=== PATIENT | male | born 1960 | race Caucasian/White ===

== ENCOUNTER 2020-10-07 11:13 | Inpatient (IN) | payer OTHER, SELFPAY ==
[2020-10-07] VITALS (16 sets, daily range): BP systolic 60–95; BP diastolic 34–61; PULSE 99–137; RESP 14–20; TEMP 34.3–37.4; O2SAT 89–97; BMI 22.1; BMI 20.7
--- NOTE | 2020-10-07 | CT_ITS ---
EXAMINATION: CT ABDOMEN AND PELVIS WITH CONTRAST CLINICAL INFORMATION: Question colitis. COMPARISON: CTA chest 11/05/2019. TECHNIQUE: Multidetector volumetric images were obtained from the superior aspect of the liver through the pubic symphysis following administration 85 mL of Omnipaque 350 intravenous contrast. Sagittal and coronal reformatted images were obtained on the technologist's workstation. Oral Contrast: No. This CT examination was performed using dose optimization techniques as appropriate, variously including the following: *Automated exposure control. *Adjustment of mA and/or kV according to patient size (this includes techniques or standardized protocols for targeted exams where dose is matched to indication/reason for exam; i.e. extremities or head). *Use of iterative reconstruction technique. DLP: 602 mGy-cm FINDINGS: LUNG BASES: Small bilateral pleural effusions are seen. At the left lung base, there is marked partially visualized probable bronchiectasis seen with surrounding soft tissue density. At the time of the prior CT chest, a larger effusion was present on the left. A few small scattered peripheral ground-glass infiltrates are present (see kim images). Marked coronary calcification is seen. Although not carried out for evaluation of pulmonary emboli, I believe pulmonary emboli may be present in the right lower lobe (see kim images). LIVER, GALLBLADDER, AND BILIARY TREE: I suspect the liver demonstrates hepatic steatosis. No focal liver mass or bile duct dilatation is seen. A tiny amount of ascites is present predominantly around the liver with a small amount in the cul-de-sac. The gallbladder is unremarkable with no evidence of definite radiopaque gallstones, gallbladder wall thickening, or obvious pericholecystic inflammatory changes. PANCREAS: Unremarkable. SPLEEN: A large splenule is present. ADRENAL GLANDS: Unremarkable. KIDNEYS AND URETERS: The kidneys are normal in size, shape, and attenuation. Some tiny cysts are seen. No hydronephrosis, hydroureter, or calculi seen. No perinephric stranding. BLADDER: Bladder is thick-walled and appears to contain air. Has this patient been catheterized recently? GASTROINTESTINAL TRACT: There is marked edematous changes involving nearly the entire colon. Inflammatory changes are seen in the perirectal region with fluid and there is retroperitoneal air present in the perineum and perirectal tissues extending into the right buttock. No free intraperitoneal air is seen. ABDOMINAL WALL: Small bilateral inguinal hernias are seen containing a small amount of fluid. LYMPH NODES: No retroperitoneal lymphadenopathy is seen. VASCULAR: Marked calcific atherosclerotic changes are present in the infrarenal aorta and iliofemoral vessels. PELVIC VISCERA: Prostate and seminal vesicles appear normal. OSSEOUS STRUCTURES: An intramedullary dea and screw is present in the right hip. CT/CT abdomen pelvis w con IMPRESSION: 1. Question of pulmonary emboli in the right lower lobe. 2. Bilateral small pleural effusions with abnormal mass-like area with associated bronchiectasis, left lower lobe. 3. Grossly abnormal edematous colon with small amount of free intraperitoneal fluid and retroperitoneal gas predominantly in the perineum and right perirectal region as described above. 4. Abnormal thick-walled bladder containing air. This could represent cystitis. The air could be from recent catheterization, if this occurred. This critical result was discussed with Dr. Rendon at 7:45 PM on the day of the exam and it was ascertained that the content and urgency of the report was understood at the time of direct communication.
--- NOTE | 2020-10-07 11:26 | ED_ITS ---
HPI - Weakness General Chief complaint: Weakness Stated complaint: FEELS ILL Time Seen by Provider: 10/07/20 11:26 Source: EMS and other (nurse) Mode of arrival: EMS Limitations: other (Brocas aphasia) History of Present Illness HPI Narrative: male brought in for weakness generalized, told his could not care for him Onset (ago): day(s) Duration: constant Location: generalized Severity: severe Related Data Home Medications Medication Instructions Recorded Confirmed albuterol sulfate [ProAir HFA] 2 puff INHALATION Q6H PRN 10/07/20 10/07/20 atorvastatin 40 mg PO DAILY 10/07/20 10/07/20 [id number]-drjnyisaw-clclbbct 1 inh INHALATION DAILY 10/07/20 10/07/20 [Trelegy Ellipta] folic acid 1 mg PO DAILY 10/07/20 10/07/20 gabapentin 300 mg PO BEDTIME PRN 10/07/20 10/07/20 thiamine HCl (vitamin B1) 100 mg PO DAILY 10/07/20 10/07/20 Allergies Allergy/AdvReac Type Severity Reaction Status Date / Time Beta-Blockers AdvReac Unknown ACTIVE Unverified 05/28/20 15:17 (Beta-Adrenergic Bloc COPD [BETA-BLOCKERS (BETA-ADRENERGIC BLOC] Review of Systems Review of Systems: Yes Unobtainable due to mental condition Neurologic: Denies Sensory deficit (Neuro) [facility] Social History Social History Alcohol intake: unknown Smoking Status: Former smoker Smoked in Last 30 Days: No Use of substances other than those prescribed or required for medical reasons: Unknown Advance Directives: Yes Advance Directives Information Provided: Yes Advance Directives on File: No (FILED IN [place]) Physical Exam Vital Signs: Vital Signs: Last Vital Signs Temp 97.6 F 10/07/20 14:56 Pulse 127 H 10/07/20 14:56 Resp 18 10/07/20 14:56 BP 86/43 L 10/07/20 14:56 Pulse Ox 95 10/07/20 14:56 Body Mass Index 20.7 Const: Other: chronically ill appearing, short of breath Nutritional A ppearance: thin Limitations: other limitations (aphasic) HENMT: Head: Yes normal to inspection Ears: external ears normal General nose exam: Normal external nose present Mouth: Normal oral and palatal mucosa present and oropharynx normal Throat: Yes posterior oropharynx normal Eyes: General: appearance normal, both eyes and all related structures Neck: Other: supple Neck: Yes normal visual inspection Chest: Chest palpation & inspection: normal inspection of the chest Resp: Other: diffuse rhonchi with slight cough Cardio: Other: tachycardia Jugular venous distension: no JVD Rate: regular rate Rhythm: regular rhythm GI: Inspection: Yes normal to inspection Palpation (GI): Soft to palpation, nontender and No hepatosplenomegaly present Auscultation: normal bowel sounds : General: Yes no CVA tenderness Back/Spine/Pelvis: Back: no CVA tenderness Skin: Other: 2 large stage 4 sacral decubedi Neuro: Other: dense right hemiparesis Sensory Exam: No Sensory deficit (Neuro) Extrem: Other: right arm contracted with lymphedema, right leg with severe lymphadema Psych: Appearance: grossly normal Course Course Course Narrative: Patient ill appearing, large WBC 23K, infiltrates on xray, started abx will admit Reevaluation(s) Reevaluation #1: Patient now with diarrhea, with such a high WBC count will sent cdiff Time: 15:59 MDM - Weakness MDM Narrative Medical decision making narrative: pneumonia were all considered. Covid negative, started treatment for pneumonia Differential Diagnosis Differential diagnosis: Likely UTI, rhabdomyolysis, sepsis and dehydration Lab Data Result diagrams: 10/07/20 11:50 10/07/20 11:50 Labs: Lab Results 10/07/20 10/07/20 10/07/20 Range/Units 11:50 11:50 11:50 WBC 23.2 H (4.8-10.8) X10*3/uL RBC 3.11 L (4.60-5.80) X10*6/uL Hgb 9.9 L (14.0-18.0) g/dl Hct 29.4 L (42-52) % MCV 94.5 (80-98) fL MCH 31.8 (27.0-33.0) pg MCHC 33.7 (31.0-36.0) g/dl RDW 15.7 (11.0-16.0) % Plt Count 93 L (160-400) X10*3/uL MPV 10.6 (9.4-12.4) fL Immature Gran % (Auto) Cancelled Neut % (Auto) Cancelled Lymph % (Auto) Cancelled [facility] % (Auto) Cancelled Eos % (Auto) Cancelled Baso % (Auto) Cancelled Lymph # (Auto) Cancelled [facility] # (Auto) Cancelled Eos # (Auto) Cancelled Baso # (Auto) Cancelled Abs Immat Gran (auto) Cancelled Absolute Neuts (auto) Cancelled Absolute Nucleated RBC 0.000 (0.0-0.012) X10*3/uL Nucleated RBC % (auto) 0.0 (0.0-0.2) /100WBC Neutrophils % (Manual) 74 H (45-73) % Band Neutrophils % 23 H (3-5) % Lymphocytes % (Manual) 1 L (20-40) % Monocytes % (Manual) 2 (2-11) % Abs Neuts (Manual) 22.5 H (2.2-7.9) X10*3/uL Lymphocytes # (Manual) 0.2 L (0.6-4.8) X10*3/uL Monocytes # (Manual) 0.5 (0.0-1.2) X10*3/uL Toxic Vacuolation PRESENT Platelet Estimate DECREASED (NORMAL) Plt Morphology Comment NORMAL RBC Morphology NOTED Cindi Cells 1+ Acanthocytes (Spur) 1+ Hold Blue Top Sodium 133 L (135-145) mmol/L Potassium 3.4 (3.3-5.1) mmol/l Chloride 101 (96-108) mmol/L Carbon Dioxide 25 (22-29) mmol/L Anion Gap 10 L (12-20) BUN 6 L (9-16) mg/dL Creatinine 0.59 (0.5-1.4) mg/dL Estim Creat Clear Calc 126.4 Estimated GFR > 60 Random Glucose 66 (60-115) mg/dL Lactic Acid (0.5-2.0) mmol/L Lactic Acid Fup @ 2Hr (0.5-2.0) mmol/L Calcium 7.0 L (8.4-10.2) mg/dL Total Bilirubin 1.3 H (0.0-1.0) mg/dL AST 20 (5-37) U/L ALT 21 (0-40) U/L Alkaline Phosphatase 108 (39-117) U/L Troponin I High Sens 6.5 (<3.5-35.0) ng/L Total Protein 5.8 L (6.5-8.0) g/dL Albumin 1.3 L (3.5-5.0) g/dL Hold Yellow Top Urine Color Urine Appearance Urine pH (5.0-8.0) Ur Specific Bradford (1.005-1.025) Urine Protein (NEG-TRACE) MG/DL Urine Glucose (UA) (NEG) MG/DL Urine Ketones (NEG) MG/DL Urine Blood (NEG) Urine Nitrite (NEG) Ur Leukocyte Esterase (NEG) Urine RBC (0) /HPF Urine WBC (0-4) /HPF Ur Squamous Epith Cells /LPF Urine Bacteria /LPF Coronavirus (PCR) (Negative) Influenza Type A (PCR) (Negative) Influenza Type B (PCR) (Negative) RSV RNA Qual (PCR) (Negative) 10/07/20 10/07/20 10/07/20 Range/Units 11:50 11:51 12:07 WBC (4.8-10.8) X10*3/uL RBC (4.60-5.80) X10*6/uL Hgb (14.0-18.0) g/dl Hct (42-52) % MCV (80-98) fL MCH (27.0-33.0) pg MCHC (31.0-36.0) g/dl RDW (11.0-16.0) % Plt Count (160-400) X10*3/uL MPV (9.4-12.4) fL Immature Gran % (Auto) Neut % (Auto) Lymph % (Auto) [facility] % (Auto) Eos % (Auto) Baso % (Auto) Lymph # (Auto) [facility] # (Auto) Eos # (Auto) Baso # (Auto) Abs Immat Gran (auto) Absolute Neuts (auto) Absolute Nucleated RBC (0.0-0.012) X10*3/uL Nucleated RBC % (auto) (0.0-0.2) /100WBC Neutrophils % (Manual) (45-73) % Band Neutrophils % (3-5) % Lymphocytes % (Manual) (20-40) % Monocytes % (Manual) (2-11) % Abs Neuts (Manual) (2.2-7.9) X10*3/uL Lymphocytes # (Manual) (0.6-4.8) X10*3/uL Monocytes # (Manual) (0.0-1.2) X10*3/uL Toxic Vacuolation Platelet Estimate (NORMAL) Plt Morphology Comment RBC Morphology Cindi Cells Acanthocytes (Spur) Hold Blue Top SEE NOTE Sodium (135-145) mmol/L Potassium (3.3-5.1) mmol/l Chloride (96-108) mmol/L Carbon Dioxide (22-29) mmol/L Anion Gap (12-20) BUN (9-16) mg/dL Creatinine (0.5-1.4) mg/dL Estim Creat Clear Calc Estimated GFR Random Glucose (60-115) mg/dL Lactic Acid 2.2 H* (0.5-2.0) mmol/L Lactic Acid Fup @ 2Hr (0.5-2.0) mmol/L Calcium (8.4-10.2) mg/dL Total Bilirubin (0.0-1.0) mg/dL AST (5-37) U/L ALT (0-40) U/L Alkaline Phosphatase (39-117) U/L Troponin I High Sens (<3.5-35.0) ng/L Total Protein (6.5-8.0) g/dL Albumin (3.5-5.0) g/dL Hold Yellow Top Urine Color Urine Appearance Urine pH (5.0-8.0) Ur Specific Bradford (1.005-1.025) Urine Protein (NEG-TRACE) MG/DL Urine Glucose (UA) (NEG) MG/DL Urine Ketones (NEG) MG/DL Urine Blood (NEG) Urine Nitrite (NEG) Ur Leukocyte Esterase (NEG) Urine RBC (0) /HPF Urine WBC (0-4) /HPF Ur Squamous Epith Cells /LPF Urine Bacteria /LPF Coronavirus (PCR) NEGATIVE (Negative) Influenza Type A (PCR) NEGATIVE (Negative) Influenza Type B (PCR) NEGATIVE (Negative) RSV RNA Qual (PCR) NEGATIVE (Negative) 10/07/20 10/07/20 10/07/20 Range/Units 12:07 12:35 14:47 WBC (4.8-10.8) X10*3/uL RBC (4.60-5.80) X10*6/uL Hgb (14.0-18.0) g/dl Hct (42-52) % MCV (80-98) fL MCH (27.0-33.0) pg MCHC (31.0-36.0) g/dl RDW (11.0-16.0) % Plt Count (160-400) X10*3/uL MPV (9.4-12.4) fL Immature Gran % (Auto) Neut % (Auto) Lymph % (Auto) [facility] % (Auto) Eos % (Auto) Baso % (Auto) Lymph # (Auto) [facility] [place] # (Auto) Eos # (Auto) Baso # (Auto) Abs Immat Gran (auto) Absolute Neuts (auto) Absolute Nucleated RBC (0.0-0.012) X10*3/uL Nucleated RBC % (auto) (0.0-0.2) /100WBC Neutrophils % (Manual) (45-73) % Band Neutrophils % (3-5) % Lymphocytes % (Manual) (20-40) % Monocytes % (Manual) (2-11) % Abs Neuts (Manual) (2.2-7.9) X10*3/uL Lymphocytes # (Manual) (0.6-4.8) X10*3/uL Monocytes # (Manual) (0.0-1.2) X10*3/uL Toxic Vacuolation Platelet Estimate (NORMAL) Plt Morphology Comment RBC Morphology Mouthcard Cells Acanthocytes (Spur) Hold Blue Top Sodium (135-145) mmol/L Potassium (3.3-5.1) mmol/l Chloride (96-108) mmol/L Carbon Dioxide (22-29) mmol/L Anion Gap (12-20) BUN (9-16) mg/dL Creatinine (0.5-1.4) mg/dL Estim Creat Clear Calc Estimated GFR Random Glucose (60-115) mg/dL Lactic Acid (0.5-2.0) mmol/L Lactic Acid Fup @ 2Hr 3.3 H* (0.5-2.0) mmol/L Calcium (8.4-10.2) mg/dL Total Bilirubin (0.0-1.0) mg/dL AST (5-37) U/L ALT (0-40) U/L Alkaline Phosphatase (39-117) U/L Troponin I High Sens (<3.5-35.0) ng/L Total Protein (6.5-8.0) g/dL Albumin (3.5-5.0) g/dL Hold Yellow Top See Note Urine Color YELLOW Urine Appearance TURBID Urine pH 7.5 (5.0-8.0) Ur Specific Bradford 1.015 (1.005-1.025) Urine Protein TRACE (NEG-TRACE) MG/DL Urine Glucose (UA) 100 H (NEG) MG/DL Urine Ketones NEG (NEG) MG/DL Urine Blood 3+ H (NEG) Urine Nitrite NEG (NEG) Ur Leukocyte Esterase 3+ H (NEG) Urine RBC 5-9 H (0) /HPF Urine WBC 50-75 H (0-4) /HPF Ur Squamous Epith Cells 3+ /LPF Urine Bacteria 4+ /LPF Coronavirus (PCR) (Negative) Influenza Type A (PCR) (Negative) Influenza Type B (PCR) (Negative) RSV RNA Qual (PCR) (Negative) Imaging Data Chest x-ray: Attestation: I personally reviewed and interpreted this imaging study as follows: Radiologist's impression: bilateral upper lobe infiltrate Venous US: Radiologist's impression: chronic right leg DVT ECG Data Attestation: I personally reviewed and interpreted this ECG as follows: Interpretation: atrial fibrillation rate 130, no acute st or twave changes Critical Care Time Critical Care Time Attestation: I spent 40 minutes of critical care, with interventions, assessments, speaking to patient, consultants, and family. Discharge Plan Discharge Clinical Impression: Pneumonia Qualifiers: Pneumonia type: due to unspecified organism Laterality: bilateral Lung locatio n: upper lobe of lung Qualified Code(s): J18.9 - Pneumonia, unspecified organism Sepsis Qualifiers: Sepsis type: sepsis due to unspecified organism Sepsis acute organ dysfunction status: with acute organ dysfunction Severe sepsis acute organ dysfunction type: acute respiratory failure Acute respiratory failure type: with hypoxia Severe sepsis shock status: without septic shock Qualified Code(s): A41.9 - Sepsis, unspecified organism Patient Disposition: Admitted As Inpatient
--- NOTE | 2020-10-07 11:29 | ECG_ITS ---
Test Reason : WEAKNESS Blood Pressure : / mmHG Vent. Rate : 142 BPM Atrial Rate : 144 BPM P-R Int : 000 ms QRS Dur : 084 ms QT Int : 270 ms P-R-T Axes : 000 115 054 degrees QTc Int : 415 ms Atrial fibrillation with rapid ventricular response Right axis deviation Cannot rule out septal infarct Low voltage QRS Abnormal ECG When compared with ECG of 09-NOV-2019 11:15, Atrial fibrillation has replaced Sinus rhythm Questionable change in QRS duration Septal infarct is now Present Referred By: Bertin Mac Electronically Signed By:Rhys Adams
--- NOTE | 2020-10-07 11:30 | XR_ITS ---
EXAMINATION: XR CHEST CLINICAL INFORMATION: Shortness of breath COMPARISON: Previous chest x-ray November 2019 TECHNIQUE: Frontal view of the chest was obtained. FINDINGS: The cardiac and mediastinal contours are stable. There are bilateral infiltrates in the right upper lung and left lung. These are similar in distribution to previous chest x-ray November 2020 when there was dense airspace consolidation or pneumonia is seen in these regions. How much of these changes represent chronic change versus acute infiltrate is difficult to determine. There is no pleural effusion or pneumothorax. No acute bone abnormality is seen. XR/XR chest 1V IMPRESSION: Bilateral infiltrates. This is in similar distribution to previous chest x-ray November 2020 where is dense airspace disease or pneumonia seen in these regions. How much of the changes on the current exam represent chronic change from prior pneumonia versus acute infiltrate is uncertain.
--- NOTE | 2020-10-07 11:42 | US_ITS ---
EXAMINATION: US VENOUS ULTRASOUND WITH DOPPLER LOWER EXTREMITY, RIGHT CLINICAL INFORMATION: Severe right leg lymphedema. COMPARISON: Ultrasound right upper extremity 11/12/2019 TECHNIQUE: Ultrasound of the deep veins is performed from the hip to the calf with compression sonography and color and pulse Doppler assessment. Spectral analysis with color-flow imaging is performed. FINDINGS: There is chronic appearing clot in profunda, superficial femoral and popliteal veins There is moderate edema in the calf limiting evaluation of the calf veins. There are several lymph nodes visualized in the right groin with the largest lymph node measuring 1.2 x 0.8 0.8 cm. It has benign characteristics. There is minimal echogenic plaque throughout the arteries. US/US venous duplex LE RT IMPRESSION: Chronic DVT right profunda, superficial femoral and popliteal veins. There is moderate calf edema limiting evaluation of the calf veins. Benign-appearing lymph nodes in right groin. There is atherosclerotic minimal plaque seen throughout the arteries.
[2020-10-07 12:21] LABS: Hematocrit 29.4 % (42-52); Hemoglobin 9.9 g/dl (14.0-18.0); Mean Corpuscular HGB Conc 33.7 g/dl (31.0-36.0); Mean Corpuscular Hemoglobin 31.8 pg (27.0-33.0); Mean Corpuscular Volume 94.5 fL (80-98); Mean Platelet Volume 10.6 fL (9.4-12.4); Red Blood Count 3.11 X10*6/uL (4.60-5.80); Red Cell Distribution Width 15.7 % (11.0-16.0); White Blood Count 23.2 X10*3/uL (4.8-10.8)
[2020-10-07 12:22] LABS: Platelet Count 93 X10*3/uL (160-400)
--- NOTE | 2020-10-07 12:22 | PC.NURSE ---
TWO STAGE 4 SACRAL PRESSURE WOUNDS APPEAR CHRONIC AND BRUISING/EDEMA TO HIS RIGHT HIP INCOTINENT OF STOOL AND URINE
[2020-10-07 12:42] LABS: Lactic Acid 2.2 mmol/L (0.5-2.0)
[2020-10-07 12:47] LABS: Alanine Aminotransferase 21 U/L (0-40); Albumin Level 1.3 g/dL (3.5-5.0); Alkaline Phosphatase 108 U/L (39-117); Anion Gap 10 (12-20); Aspartate Amino Transferase 20 U/L (5-37); Bilirubin Total 1.3 mg/dL (0.0-1.0); Blood Urea Nitrogen 6 mg/dL (9-16); Carbon Dioxide 25 mmol/L (22-29); Chloride 101 mmol/L (96-108); Creatinine Clr Calc Pharmacy 126.4; Estimated Glomerular Filt Rate > 60; Glucose Random 66 mg/dL (60-115); Potassium 3.4 mmol/l (3.3-5.1); Sodium 133 mmol/L (135-145); Total Protein 5.8 g/dL (6.5-8.0)
[2020-10-07 12:50] LABS: Troponin-I High Sensitivity 6.5 ng/L (<3.5-35.0)
[2020-10-07 12:52] LABS: Band Neutrophils Percent 23 % (3-5); Lymphocytes Absolute Manual 0.2 X10*3/uL (0.6-4.8); Lymphocytes Percent Manual 1 % (20-40); Monocytes Absolute Manual 0.5 X10*3/uL (0.0-1.2); Monocytes Percent Manual 2 % (2-11); Neutrophils Absolute Manual 22.5 X10*3/uL (2.2-7.9); Neutrophils Percent Manual 74 % (45-73)
[2020-10-07 12:53] LABS: Acanthocytes 1+; Burr Cells 1+; Influenza A PCR NEGATIVE (Negative); Influenza B PCR NEGATIVE (Negative); Platelet Estimate DECREASED (NORMAL); Platelet Morphology Comment NORMAL; Resp Syncy Virus RNA Qual PCR NEGATIVE (Negative); SARS COV2 PCR INHOUSE NEGATIVE (Negative); Toxic Vacuolation PRESENT
[2020-10-07 12:54] LABS: RBC Morphology NOTED
[2020-10-07] MEDS: cefTRIAXone sodium 2 GM in 0.9 % Sodium Chloride 50 ML IV (13:33)
--- NOTE | 2020-10-07 13:57 | PC.NURSE ---
BEDSIDE US TO R/O DVT RIGHT BEING COMPLETED CURRENTLY
[2020-10-07] MEDS: Azithromycin 500 MG in 0.9 % Sodium Chloride 250 ML 125 MG IV (14:09)
[2020-10-07 14:10] LABS: Glucose Urine UA 100 MG/DL (NEG); Nitrite Urine NEG (NEG); PH 7.5 (5.0-8.0); UACC Culture Trigger YES; Urine Blood 3+ (NEG); Urine Ketones NEG (NEG); Urine Protein TRACE MG/DL (NEG-TRACE)
--- NOTE | 2020-10-07 14:10 | PC.NURSE ---
pt remains alert and appears at what may be is baseline for communication his color has improved, he remains with upper resp congestion and productive cough at times he has not voided since st cath for urine spec he remains tachycardic
[2020-10-07 14:11] LABS: Appearance Urine TURBID; Color Urine YELLOW; Leukocyte Esterase Urine 3+ (NEG)
[2020-10-07 14:12] LABS: Reflex Lactate? Lactic Acid Added
[2020-10-07 14:12] LABS: Specific Gravity - Urine 1.015 (1.005-1.025)
[2020-10-07 14:27] LABS: Bacteria Urine 4+ /LPF; Squamous Epithelial Cell Urine 3+ /LPF; WBC Urine 50-75 /HPF (0-4)
[2020-10-07] MEDS: dilTIAZem HCL 50 MG/10 ML VIAL 10 MG IVPUSH (14:51)
[2020-10-07] MEDS: 0.9 % Sodium Chloride 1,000 ML 999 ML IVCONT ×2 (14:51→16:48)
[2020-10-07 15:25] LABS: ~Lactic Acid-LAB USE ONLY 3.3 mmol/L (0.5-2.0)
--- NOTE | 2020-10-07 16:00 | PC.NURSE ---
remains awake. 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
[2020-10-07 16:52] LABS: Reflex Lactate? 2 Y
[2020-10-07 17:16] LABS: CDIFF Ag Positive (Negative); CDiff Toxin Positive (Negative)
[2020-10-07 17:17] LABS: CDIFF Internal ctrl Dots and bkg OK (V)
--- NOTE | 2020-10-07 18:08 | PC.NURSE ---
DR GOYAL AT THE BEDSIDE TO PLACE A CENTRAL LINE IN ANTICIPATION OF PT REQUIRING PRESSORS FOR CONTINUED HYPOTENSION
[2020-10-07] MEDS: Albumin Human 25 % 100 ML IV ×2 (18:33→19:44)
--- NOTE | 2020-10-07 18:34 | XR_ITS ---
EXAMINATION: XR CHEST CLINICAL INFORMATION: s/p attempted central line r/o pneumothorax COMPARISON: Chest x-ray 10/07/2020, 11:39 AM TECHNIQUE: Frontal portable view of the chest was obtained. 6:40 PM FINDINGS: No change of the bilateral multifocal airspace opacities. There is no pneumothorax. There is no pleural effusion. Cardiac and mediastinal contours are normal. Heart size is normal. There is no pulmonary vascular congestion. XR/XR chest 1V IMPRESSION: 1. No pneumothorax. 2. Persistent bilateral multifocal airspace opacities.
--- NOTE | 2020-10-07 18:34 | PC.NURSE ---
dr kent unable to obtain central line access at this time pt remains at baseline mentation albumin infusing pt to ct scan and cxr
[2020-10-07] MEDS: iohexoL 350 MG/ML 100 ML INFUS..BTL IV ×2 (18:54→21:20)
--- NOTE | 2020-10-07 19:45 | CT_ITS ---
EXAMINATION: CT ANGIOGRAM CHEST WITH AND WITHOUT CONTRAST (CT PULMONARY ANGIOGRAM FOR PE) CLINICAL INFORMATION: Assess for PE. COMPARISON: CT abdomen performed earlier today and CTA chest 11/05/2019. TECHNIQUE: Prior to contrast administration, noncontrast localization images were obtained. Subsequently, multidetector volumetric imaging was performed from the thoracic inlet to below the diaphragms following the administration of 57 mL Omnipaque 350 intravenous contrast. No contrast reaction reported. Sagittal, coronal, and MIP oblique sagittal reformatted images were obtained on the CT workstation, uploaded to PACS, and reviewed. This CT examination was performed using dose optimization techniques as appropriate, variously including the following: *Automated exposure control. *Adjustment of mA and/or kV according to patient size (this includes techniques or standardized protocols for targeted exams where dose is matched to indication/reason for exam; i.e. extremities or head). *Use of iterative reconstruction technique. Total exam dose-length product 546 mGy-cm. FINDINGS: QUALITY OF STUDY/CONTRAST BOLUS: Excellent. PULMONARY ARTERIES: Moderately extensive bilateral pulmonary artery emboli are present involving the right upper lobe, the right lower lobe and left lower lobe. THORACIC AORTA: No aneurysm or dissection. LUNGS AND PLEURA: Again noted are marked changes of emphysema with bullous formation most prominent at the apices. Previous left upper lobe infiltrate has cleared significantly since the prior CT. A left-sided pleural effusion has decreased in size. A small right pleural effusion remains. New opacities are present at the right apex which appear more band-like probably representing atelectasis or scarring. These abnormalities can be followed on future CT scans. PLEURA: No pleural effusion or pneumothorax. MEDIASTINUM: Normal heart size. No pericardial effusion. No hilar or mediastinal lymphadenopathy. No evidence of gross septal bowing or right heart strain. CHEST WALL/AXILLA: No axillary or internal mammary lymphadenopathy. OSSEOUS STRUCTURES: No acute or suspicious osseous abnormality. Mild degenerative changes are present. UPPER ABDOMEN: See CT abdomen report earlier today. CT/CT angio chest PE protocol IMPRESSION: Moderately extensive bilateral acute pulmonary emboli. VTE: Positive. This critical result was discussed with Tracey Leigh NP at 10:05 PM on the evening of the exam and it was ascertained that the content and urgency of the report was understood at the time of direct communication.
[2020-10-07] MEDS: Heparin Sodium,Porcine 5,000 UNIT/ML VIAL 5000 UNIT SUBCUT (20:04)
[2020-10-07] MEDS: Piperacillin Sodium/Tazobactam 3.375 GM in 0.9 % Sodium Chloride 50 ML IV (20:05)
--- NOTE | 2020-10-07 20:11 | PM.CCHP ---
History of Present Illness Date of Service: 10/07/20 Chief Complaint: Generalized weakness The patient is a 59-year-old male with a past medical history of stroke with right-sided hemiplegia ( 2018), COPD, chronic diarrhea and UTI who presented to the emergency room with complaints of worsening and generalized weakness. Patient is poor historian, is spoke with who is primary caregiver, she reports patient has been feeling weak for the past month but has worsened in the past 1-2 weeks. She also reports chronic diarrhea, loss of appetite, and vomiting. She also reports the patient has been refusing to change dressings to coccyx wounds. In the emergency room patient hypotensive 69/49, tachycardic pulse 128, afebrile, satting 96% on room air. Laboratory data significant for WBC 23.2, absolute neutrophils 22.5, platelets 93, sodium 133, potassium 3.4, BUN 6, creatinine 0.59, total bilirubin 1.3, 1.3, lactic acid 2.2 Urine positive for UTI Imaging: chest x-ray with no acute changes Right Venous Doppler: Chronic DVT right profunda, superficial femoral and popliteal veins. There is moderate calf edema limiting evaluation of the calf veins. In the emergency room he received x3 L normal saline, azithromycin, ceftriaxone, and Cardizem 10 mg Patient will be admitted into the ICU for septic shock, requiring pressor support Review of Systems Review of Systems: As stated in HPI all other systems negative PMFSH Past Medical History Medical History COPD (chronic obstructive pulmonary disease) Hemiplegia affecting right dominant side Stroke Wheelchair bound Family History Family History Father Aneurysm Brother Pancreatic cancer Social History Social History Alcohol intake: former Smoking Status: Former smoker Smoked in Last 30 Days: No Use of substances other than those prescribed or required for medical reasons: Unknown Advance Directives: Yes Advance Directives Information Provided: Yes Advance Directives on File: No (FILED IN [place]) Meds Allergies Allergy/AdvReac Type Severity Reaction Status Date / Time Beta-Blockers AdvReac Unknown ACTIVE Unverified 05/28/20 15:17 (Beta-Adrenergic Bloc COPD [BETA-BLOCKERS (BETA-ADRENERGIC BLOC] Home Medications Medication Instructions Recorded Confirmed Type albuterol sulfate [ProAir HFA] 2 puff INHALATION Q6H PRN 10/07/20 10/07/20 History atorvastatin 40 mg PO DAILY 10/07/20 10/07/20 History [id number]-[id number]-cerqadml 1 inh INHALATION DAILY 10/07/20 10/07/20 History [Trelegy Ellipta] folic acid 1 mg PO DAILY 10/07/20 10/07/20 History gabapentin 300 mg PO BEDTIME PRN 10/07/20 10/07/20 History thiamine HCl (vitamin B1) 100 mg PO DAILY 10/07/20 10/07/20 History Physical Exam Vital Signs: Vital Signs: Last Vital Signs Temp 97.9 F 10/07/20 16:50 Pulse 107 H 10/07/20 19:54 Resp 20 10/07/20 19:54 BP 82/50 L 10/07/20 19:54 Pulse Ox 95 10/07/20 19:54 Body Mass Index 20.7 Const: General: no acute distress and alert (Poor historian) Nutritional Appearance: malnourished and thin Orientation/consciousness: oriented to person and oriented to place Eyes: Pupils: Equal, round and reactive pupils present Neck: Neck: Yes supple and Yes no JVD Resp: Effort & Inspection: normal respiratory effort Auscultation: diminished lung sounds Cardio: Other: Normal capillary refills Rate: tachycardic Heart sounds: S1 normal heart sound present and S2 normal heart sound present Peripheral pulses: Peripheral pulses 2+ throughout GI: Inspection: Yes normal to inspection Palpation (GI): Soft to palpation Auscultation: normal bowel sounds Skin: General skin exam: ecchymosis (Neck area) Wounds: wounds noted (Right ischium stage III) Neuro: General: oriented to person and oriented to place Cranial nerves: Yes Equal, round and reactive pupils present Speech: Expressive aphasia present Extrem: Other: Bilateral lower extremity edema Right upper extremity contraction General: Yes capillary refill normal Results Labs CBC and Chem 7: 10/07/20 20:18 10/07/20 11:50 Labs: Laboratory Results - last 24 hr 10/07/20 10/07/20 10/07/20 11:50 11:50 11:50 MCV 94.5 MCH 31.8 MCHC 33.7 RDW 15.7 Plt Count 93 L MPV 10.6 Immature Gran % (Auto) Cancelled Neut % (Auto) Cancelled Lymph % (Auto) Cancelled Gregory % (Auto) Cancelled Eos % (Auto) Cancelled Baso % (Auto) Cancelled Lymph # (Auto) Cancelled Gregory # (Auto) Cancelled Eos # (Auto) Cancelled Baso # (Auto) Cancelled Abs Immat Gran (auto) Cancelled Absolute Neuts (auto) Cancelled Absolute Nucleated RBC 0.000 Nucleated RBC % (auto) 0.0 Neutrophils % (Manual) 74 H Band Neutrophils % 23 H Lymphocytes % (Manual) 1 L Monocytes % (Manual) 2 Abs Neuts (Manual) 22.5 H Lymphocytes # (Manual) 0.2 L Monocytes # (Manual) 0.5 Toxic Vacuolation PRESENT Platelet Estimate DECREASED Plt Morphology Comment NORMAL RBC Morphology NOTED Cindi Cells 1+ Acanthocytes (Spur) 1+ Hold Blue Top Anion Gap 10 L Estim Creat Clear Calc 126.4 Estimated GFR > 60 Random Glucose 66 Lactic Acid Lactic Acid Fup @ 2Hr Calcium 7.0 L Total Bilirubin 1.3 H AST 20 ALT 21 Alkaline Phosphatase 108 Troponin I High Sens 6.5 Total Protein 5.8 L Albumin 1.3 L Hold Yellow Top Urine Color Urine Appearance Urine pH Ur Specific [place] Urine Protein Urine Glucose (UA) Urine Ketones Urine Blood Urine Nitrite Ur Leukocyte Esterase Urine RBC Urine WBC Ur Squamous Epith Cells Urine Bacteria C. difficile Toxin A&B C. difficile Antigen C. difficile Interpret Coronavirus (PCR) Influenza Type A (PCR) Influenza Type B (PCR) RSV RNA Qual (PCR) 10/07/20 10/07/20 10/07/20 11:50 11:51 12:07 MCV MCH MCHC RDW Plt Count MPV Immature Gran % (Auto) Neut % (Auto) Lymph % (Auto) Gregory % (Auto) Eos % (Auto) Baso % (Auto) Lymph # (Auto) Gregory # (Auto) Eos # (Auto) Baso # (Auto) Abs Immat Gran (auto) Absolute Neuts (auto) Absolute Nucleated RBC Nucleated RBC % (auto) Neutrophils % (Manual) Band Neutrophils % Lymphocytes % (Manual) Monocytes % (Manual) Abs Neuts (Manual) Lymphocytes # (Manual) Monocytes # (Manual) Toxic Vacuolation Platelet Estimate Plt Morphology Comment RBC Morphology [place] Cells Acanthocytes (Spur) Hold Blue Top SEE NOTE Anion Gap Estim Creat Clear Calc Estimated GFR Random Glucose Lactic Acid 2.2 H* Lactic Acid Fup @ 2Hr Calcium Total Bilirubin AST ALT Alkaline Phosphatase Troponin I High Sens Total Protein Albumin Hold Yellow Top Urine Color Urine Appearance Urine pH Ur Specific [place] Urine Protein Urine Glucose (UA) Urine Ketones Urine Blood Urine Nitrite Ur Leukocyte Esterase Urine RBC Urine WBC Ur Squamous Epith Cells Urine Bacteria C. difficile Toxin A&B C. difficile Antigen C. difficile Interpret Coronavirus (PCR) NEGATIVE Influenza Type A (PCR) NEGATIVE Influenza Type B (PCR) NEGATIVE RSV RNA Qual (PCR) NEGATIVE 10/07/20 10/07/20 10/07/20 12:07 12:35 14:47 MCV MCH MCHC RDW Plt Count MPV Immature Gran % (Auto) Neut % (Auto) Lymph % (Auto) Gregory % (Auto) Eos % (Auto) Baso % (Auto) Lymph # (Auto) Gregory # (Auto) Eos # (Auto) Baso # (Auto) Abs Immat Gran (auto) Absolute Neuts (auto) Absolute Nucleated RBC Nucleated RBC % (auto) Neutrophils % (Manual) Band Neutrophils % Lymphocytes % (Manual) Monocytes % (Manual) Abs Neuts (Manual) Lymphocytes # (Manual) Monocytes # (Manual) Toxic Vacuolation Platelet Estimate Plt Morphology Comment RBC Morphology [place] Cells Acanthocytes (Spur) Hold Blue Top Anion Gap Estim Creat Clear Calc Estimated GFR Random Glucose Lactic Acid Lactic Acid Fup @ 2Hr 3.3 H* Calcium Total Bilirubin AST ALT Alkaline Phosphatase Troponin I High Sens Total Protein Albumin Hold Yellow Top See Note Urine Color YELLOW Urine Appearance TURBID Urine pH 7.5 Ur Specific [place] 1.015 Urine Protein TRACE Urine Glucose (UA) 100 H Urine Ketones NEG Urine Blood 3+ H Urine Nitrite NEG Ur Leukocyte Esterase 3+ H Urine RBC 5-9 H Urine WBC 50-75 H Ur Squamous Epith Cells 3+ Urine Bacteria 4+ C. difficile Toxin A&B C. difficile Antigen C. difficile Interpret Coronavirus (PCR) Influenza Type A (PCR) Influenza Type B (PCR) RSV RNA Qual (PCR) 10/07/20 16:00 MCV MCH MCHC RDW Plt Count MPV Immature Gran % (Auto) Neut % (Auto) Lymph % (Auto) Gregory % (Auto) Eos % (Auto) Baso % (Auto) Lymph # (Auto) Gregory # (Auto) Eos # (Auto) Baso # (Auto) Abs Immat Gran (auto) Absolute Neuts (auto) Absolute Nucleated RBC Nucleated RBC % (auto) Neutrophils % (Manual) Band Neutrophils % Lymphocytes % (Manual) Monocytes % (Manual) Abs Neuts (Manual) Lymphocytes # (Manual) Monocytes # (Manual) Toxic Vacuolation Platelet Estimate Plt Morphology Comment RBC Morphology Cindi Cells Acanthocytes (Spur) Hold Blue Top Anion Gap Estim Creat Clear Calc Estimated GFR Random Glucose Lactic Acid Lactic Acid Fup @ 2Hr Calcium Total Bilirubin AST ALT Alkaline Phosphatase Troponin I High Sens Total Protein Albumin Hold Yellow Top Urine Color Urine Appearance Urine pH Ur Specific [place] Urine Protein Urine Glucose (UA) Urine Ketones Urine Blood Urine Nitrite Ur Leukocyte Esterase Urine RBC Urine WBC Ur Squamous Epith Cells Urine Bacteria C. difficile Toxin A&B Positive A C. difficile Antigen Positive A C. difficile Interpret SEE NOTE Coronavirus (PCR) Influenza Type A (PCR) Influenza Type B (PCR) RSV RNA Qual (PCR) Imaging Radiologist's Impressions: Impressions Abdomen/Pelvis CT 10/07/20 00:00 IMPRESSION: 1. Question of pulmonary emboli in the right lower lobe. 2. Bilateral small pleural effusions with abnormal mass-like area with associated bronchiectasis, left lower lobe. 3. Grossly abnormal edematous colon with small amount of free intraperitoneal fluid and retroperitoneal gas predominantly in the perineum and right perirectal region as described above. 4. Abnormal thick-walled bladder containing air. This could represent cystitis. The air could be from recent catheterization, if this occurred. This critical result was discussed with Dr. Rendon at 7:45 PM on the day of the exam and it was ascertained that the content and urgency of the report was understood at the time of direct communication. Chest X-Ray 10/07/20 11:30 IMPRESSION: Bilateral infiltrates. This is in similar distribution to previous chest x-ray November 2020 where is dense airspace disease or pneumonia seen in these regions. How much of the changes on the current exam represent chronic change from prior pneumonia versus acute infiltrate is uncertain. Venous Duplex 10/07/20 11:42 IMPRESSION: Chronic DVT right profunda, superficial femoral and popliteal veins. There is moderate calf edema limiting evaluation of the calf veins. Benign-appearing lymph nodes in right groin. There is atherosclerotic minimal plaque seen throughout the arteries. Chest X-Ray 10/07/20 18:34 IMPRESSION: 1. No pneumothorax. 2. Persistent bilateral multifocal airspace opacities. Assessment and Plan (1) Septic shock: Status: Acute Neuro: no aute issues Cardiac: Septic Shock, Patient hypotensive, elevated lactate. Requiring pressors. Receive fluids in the ED as well as albumin. Has multiple possibilities for source, C diff infection, UTI, and coccygeal wounds. Will continue to treat with Zosyn and Flagyl. Will also add an empiric dose of vancomycin. Will wean pressors when appropriate DVT: bilateral lower extremity edema, right worse than left. Doppler showing Pulmonary: Abdomen CT showing possible PE. Patient is on room air, in no acute respiratory distress. Will obtain chest CTA. Not able to fully anticoagulate due to thrombocytopenia. We will follow-up with CTA Renal: Hypoalbuminemia: patient?s albumin 1.7, bilateral lymphedema right worse than left. Replace with 200 of albumin. Will continue albumin replacement. Endo: No acute issues. GI: ? Perforation/abcess: Abdomen CT: Intraperitoneal fluid and retroperitoneal gas predominantly in the perineum and right perirectal region as described above. As well as Abnormal thick-walled bladder containing air. Abdomen assessment benign. General surgery consulted. in to see the patient. Believes air around the kaleb rectal area is likely from right ischial ulcer. He also does not believe ulcer needs debridement at this time. C diff infection: has chronic diarrhea, but came back positive cdiff. Being treated for Flagyl. Heme/Onc: Anemia: Initial H&H 9.9/29.4 now 7.8/23. Unsure if this is dilutional versus acute bleed. Will treat with 1 unit of RBC. Obtain stool Occult blood Repeat CBC Thrombocytopenia initial platelets today was 93, now dropped to 57. Platelets were 297 in November of 2019. We will hold heparin. Transfuse 1 platelets. Continue to closely monitor for acute signs of bleeding ID: Septic shock, With multiple sources as stated above. Will continue antibiotic treatment Psych: No acute issues. Diet: Regular diet DVT: subQ heparin. Does not require GI prophylaxis Code status: DO NOT INTUBATE, confirmed with patient?s (2) C. difficile colitis: Status: Acute (3) UTI (urinary tract infection): Status: Acute (4) DVT (deep venous thrombosis): Status: Acute (5) Sepsis: Qualifiers: Acute respiratory failure type: with hypoxia Sepsis acute organ dysfunction status: with acute organ dysfunction Sepsis type: sepsis due to unspecified organism Severe sepsis acute organ dysfunction type: acute respiratory failure Severe sepsis shock status: without septic shock Qualified Code(s): A41.9 - Sepsis, unspecified organism; R65.20 - Severe sepsis without septic shock; J96.01 - Acute respiratory failure with hypoxia Status: Acute (6) Anemia: Status: Acute (7) Abnormal CT of the abdomen: Status: Acute
[2020-10-07 20:24] LABS: Hematocrit 23.5 % (42-52); Hemoglobin 7.8 g/dl (14.0-18.0); Mean Corpuscular HGB Conc 33.2 g/dl (31.0-36.0); Mean Corpuscular Hemoglobin 32.6 pg (27.0-33.0); Mean Corpuscular Volume 98.3 fL (80-98); Mean Platelet Volume 10.1 fL (9.4-12.4); Red Blood Count 2.39 X10*6/uL (4.60-5.80); Red Cell Distribution Width 15.9 % (11.0-16.0); White Blood Count 20.3 X10*3/uL (4.8-10.8)
--- NOTE | 2020-10-07 20:27 | PC.NURSE ---
BRIANNA CAME TO DRAW PATIENT LABS ,WAS ABLE TO GET CBC ONLY ,DUE TO HARD STICK .
[2020-10-07 20:42] LABS: Platelet Count 57 X10*3/uL (160-400)
[2020-10-07 20:52] LABS: Band Neutrophils Percent 24 % (3-5); Lymphocytes Absolute Manual 0.6 X10*3/uL (0.6-4.8); Lymphocytes Percent Manual 3 % (20-40); Macrocytosis 1+; Metamyelocytes Absolute 0.6 X10*3/uL; Metamyelocytes Percent 3 %; Microcytosis 1+; Monocytes Absolute Manual 0.6 X10*3/uL (0.0-1.2); Monocytes Percent Manual 3 % (2-11); Neutrophils Absolute Manual 18.5 X10*3/uL (2.2-7.9); Neutrophils Percent Manual 67 % (45-73); RBC Morphology NOTED
[2020-10-07 20:53] LABS: Platelet Estimate DECREASED (NORMAL); Platelet Morphology Comment NORMAL
[2020-10-07] MEDS: metroNIDAZOLE/NS 500 MG/100 ML PIGGYBACK 100 MG IV (20:56)
--- NOTE | 2020-10-07 21:18 | PM.CNGS ---
History of Present Illness Consult details Consult date: 10/07/20 Narrative: 59M with right sided hemiplegia from CVA, brought to the ED today because of generalized weakness. According to the , the patient has been noticed to have weakness and some failure to thrive for about a month now. This seems to have worsened the past 2 weeks and the felt she could no longer take care of him at home. He was noticed to have leukocytosis in the ED and had signs of sepsis. A CT scan was done showing air in the perirectal area, left buttock and small amount in the perineum.He had diffuse thickening of the colon all the way to the rectum. The patient has a hx of diarrhea as well. He tested positive for C diff in the ED. He also is reported to have a deep buttock decub ulcer. Review of Systems Constitutional: Constitutional: Denies chills, Denies fever(s), Reports lethargy, Reports poor appetite, Reports weakness and Reports weight loss Cardiovascular: Cardiovascular: Denies chest pain Respiratory: Respiratory: Denies cough Gastrointestinal: Gastrointestinal: Denies diarrhea Genitourinary: Genitourinary: Denies hematuria Neurologic: Reports weakness PMFSH Past Medical History Medical History COPD (chronic obstructive pulmonary disease) Hemiplegia affecting right dominant side Stroke Wheelchair bound Family History Family History Father Aneurysm Brother Pancreatic cancer Social History Social History Alcohol intake: former Smoking Status: Former smoker Smoked in Last 30 Days: No Use of substances other than those prescribed or required for medical reasons: Unknown Advance Directives: Yes Advance Directives Information Provided: Yes Advance Directives on File: No (FILED IN [place]) Meds Allergies Allergy/AdvReac Type Severity Reaction Status Date / Time Beta-Blockers AdvReac Unknown ACTIVE Unverified 05/28/20 15:17 (Beta-Adrenergic Bloc COPD [BETA-BLOCKERS (BETA-ADRENERGIC BLOC] Home Medications Medication Instructions Recorded Confirmed Type albuterol sulfate [ProAir HFA] 2 puff INHALATION Q6H PRN 10/07/20 10/07/20 History atorvastatin 40 mg PO DAILY 10/07/20 10/07/20 History xmckiovlaua-atbbgtlpu-xeljarve 1 inh INHALATION DAILY 10/07/20 10/07/20 History [Trelegy Ellipta] folic acid 1 mg PO DAILY 10/07/20 10/07/20 History gabapentin 300 mg PO BEDTIME PRN 10/07/20 10/07/20 History thiamine HCl (vitamin B1) 100 mg PO DAILY 10/07/20 10/07/20 History Physical Exam Vital Signs: Vital Signs: Last Vital Signs Temp 97.9 F 10/07/20 16:50 Pulse 107 H 10/07/20 19:54 Resp 20 10/07/20 19:54 BP 82/50 L 10/07/20 19:54 Pulse Ox 95 10/07/20 19:54 Body Mass Index 20.7 Const: Other: appears very frail, does not answer questions well, Nutritional Appearance: malnourished Chest: Other: ecchymotic areas on the right chest wall Resp: Effort & Inspection: abnormal respiratory pattern and respiratory distress (some difficulty breathing) Cardio: Rate: tachycardic Rhythm: regular rhythm GI: Palpation (GI): Soft to palpation, not firm, nontender, no guarding and not rigid Back/Spine/Pelvis: Other: large deep ulcer, right buttock, at least a stage 4, about 5 cm long, but tunneling, no pus, no gangrenous tissue; no perianal redness/induration or fluctuance ANOSCOPY done at bedside - no obvious anal canal/distal rectal lesions or masses, no bleeding; has large amounts of semi-formed stools in vault Extrem: Other: flexion contracture of the right arm; severe edema of the right leg Results Labs Result diagrams: 10/07/20 20:18 10/07/20 11:50 Labs: Abnormal lab results 10/07/20 10/07/20 10/07/20 Range/Units 11:50 11:50 11:51 WBC 23.2 H (4.8-10.8) X10*3/uL RBC 3.11 L (4.60-5.80) X10*6/uL Hgb 9.9 L (14.0-18.0) g/dl Hct 29.4 L (42-52) % MCV (80-98) fL Plt Count 93 L (160-400) X10*3/uL Neutrophils % (Manual) 74 H (45-73) % Band Neutrophils % 23 H (3-5) % Lymphocytes % (Manual) 1 L (20-40) % Abs Neuts (Manual) 22.5 H (2.2-7.9) X10*3/uL Lymphocytes # (Manual) 0.2 L (0.6-4.8) X10*3/uL Sodium 133 L (135-145) mmol/L Anion Gap 10 L (12-20) BUN 6 L (9-16) mg/dL Lactic Acid 2.2 H* (0.5-2.0) mmol/L Lactic Acid Fup @ 2Hr (0.5-2.0) mmol/L Calcium 7.0 L (8.4-10.2) mg/dL Total Bilirubin 1.3 H (0.0-1.0) mg/dL Total Protein 5.8 L (6.5-8.0) g/dL Albumin 1.3 L (3.5-5.0) g/dL Urine Glucose (UA) (NEG) MG/DL Urine Blood (NEG) Ur Leukocyte Esterase (NEG) Urine RBC (0) /HPF Urine WBC (0-4) /HPF C. difficile Toxin A&B (Negative) C. difficile Antigen (Negative) 10/07/20 10/07/20 10/07/20 Range/Units 12:35 14:47 16:00 WBC (4.8-10.8) X10*3/uL RBC (4.60-5.80) X10*6/uL Hgb (14.0-18.0) g/dl Hct (42-52) % MCV (80-98) fL Plt Count (160-400) X10*3/uL Neutrophils % (Manual) (45-73) % Band Neutrophils % (3-5) % Lymphocytes % (Manual) (20-40) % Abs Neuts (Manual) (2.2-7.9) X10*3/uL Lymphocytes # (Manual) (0.6-4.8) X10*3/uL Sodium (135-145) mmol/L Anion Gap (12-20) BUN (9-16) mg/dL Lactic Acid (0.5-2.0) mmol/L Lactic Acid Fup @ 2Hr 3.3 H* (0.5-2.0) mmol/L Calcium (8.4-10.2) mg/dL Total Bilirubin (0.0-1.0) mg/dL Total Protein (6.5-8.0) g/dL Albumin (3.5-5.0) g/dL Urine Glucose (UA) 100 H (NEG) MG/DL Urine Blood 3+ H (NEG) Ur Leukocyte Esterase 3+ H (NEG) Urine RBC 5-9 H (0) /HPF Urine WBC 50-75 H (0-4) /HPF C. difficile Toxin A&B Positive A (Negative) C. difficile Antigen Positive A (Negative) 10/07/20 Range/Units 20:18 WBC 20.3 H (4.8-10.8) X10*3/uL RBC 2.39 L D (4.60-5.80) X10*6/uL Hgb 7.8 L D (14.0-18.0) g/dl Hct 23.5 L D (42-52) % MCV 98.3 H (80-98) fL Plt Count 57 L D (160-400) X10*3/uL Neutrophils % (Manual) (45-73) % Band Neutrophils % 24 H (3-5) % Lymphocytes % (Manual) 3 L (20-40) % Abs Neuts (Manual) 18.5 H (2.2-7.9) X10*3/uL Lymphocytes # (Manual) (0.6-4.8) X10*3/uL Sodium (135-145) mmol/L Anion Gap (12-20) BUN (9-16) mg/dL Lactic Acid (0.5-2.0) mmol/L Lactic Acid Fup @ 2Hr (0.5-2.0) mmol/L Calcium (8.4-10.2) mg/dL Total Bilirubin (0.0-1.0) mg/dL Total Protein (6.5-8.0) g/dL Albumin (3.5-5.0) g/dL Urine Glucose (UA) (NEG) MG/DL Urine Blood (NEG) Ur Leukocyte Esterase (NEG) Urine RBC (0) /HPF Urine WBC (0-4) /HPF C. difficile Toxin A&B (Negative) C. difficile Antigen (Negative) Short CBC 10/07/20 10/07/20 Range/Units 11:50 20:18 WBC 23.2 H 20.3 H (4.8-10.8) X10*3/uL Hgb 9.9 L 7.8 L D (14.0-18.0) g/dl Hct 29.4 L 23.5 L D (42-52) % Plt Count 93 L 57 L D (160-400) X10*3/uL BMP 10/07/20 11:50 Sodium 133 L Potassium 3.4 Chloride 101 Carbon Dioxide 25 BUN 6 L Creatinine 0.59 Calcium 7.0 L Liver Function 10/07/20 Range/Units 11:50 Total Bilirubin 1.3 H (0.0-1.0) mg/dL AST 20 (5-37) U/L ALT 21 (0-40) U/L Alkaline Phosphatase 108 (39-117) U/L Albumin 1.3 L (3.5-5.0) g/dL Urine 10/07/20 Range/Units 12:35 Urine Color YELLOW Urine Appearance TURBID Urine pH 7.5 (5.0-8.0) Ur Specific [place] 1.015 (1.005-1.025) Urine Protein TRACE (NEG-TRACE) MG/DL Urine Glucose (UA) 100 H (NEG) MG/DL All other labs normal. Assessment and Plan (1) Abnormal CT of the abdomen: Status: Acute I have reviewed his CT scan images. He has air in the perirectal area that appears to track partly into the perineum. I do not see any suggestion of any perirectal abscess that indicated any extraperitoneal perforation. Anoscopy does not show any blood on obvious induration. There is no perianal inflammation. I suspect that the air around the perirectal area is likely air tracking from the deep buttock ulcer on the right which on exam is close to the anal verge. The ulcer does not appears to have have any gangrenous tissue and does not require debridement at this time. His abdominal exam is very benign. He has tested positive for C diff, but this is unlikely to be related to his perirectal air. There is no other acute intraabdominal finding on CT He has other multiple acute issues, including a pneumonia. He appears very debilitated as well. He is being worked up for a PE as he has a chronic DVT on the right leg. He also appears to have a severe UTI. At this time therefore, I do not see any surgical issues. I would defer to the ICU team with regards to management of all his multiple acute medical issues. I will however follow along while he is in the hospital. I have discussed the above with the ICU staff. I spent about 55 minutes examining the patient and reviewing his records and imaging studies.
--- NOTE | 2020-10-07 21:30 | PC.NURSE ---
pt was a difficult stick phlebotomy called and attempted. 20g l wrist cleaned patient.
--- NOTE | 2020-10-07 21:34 | PC.NURSE ---
pt taken for cta then to icu. 2nd albumin completed prior to transfer and report given to carol arroyo. john inplace and patient arthur urine. pt right arm is contracted and unable to obtain iv access there. pt has 20 left wrist and 20g left upper arm.
[2020-10-07 21:43] LABS: ~Lactic Acid-LAB USE ONLY 3.6 mmol/L (0.5-2.0)
[2020-10-07 22:14] LABS: Prothrombin Time 24.3 SEC (10.8-13.0)
--- NOTE | 2020-10-07 22:35 | PC.NURSE ---
Addendum entered by Trace Scott RN 10/08/20 08:01: After POC rechecked, D5LR started @ 100. Patient also took small sips of gingerale. Patient received 1 unit of platelets and RBC - post transfusions, patient audible rhonchi noted. O2sat maintained mid 90's on 2 liters. Chrissy MATOS aware - ordered 20mg IVP lasix - given @ 0510. Patient stooled x3. Reposition, pericare done. kaleb-area macerated. Right hip/ ischeal tub. dressing changed again r/t being soiled @ 0530. Addendum entered by Trace Scott RN 10/08/20 00:26: POC blood sugar rechecked - 72. Still asymptomatic. Original Note: Admitted to ICU @ aprox 2130 for sepsis, C-diff, UTI. Per report - refusing care and ulcer dressing changes. Evaluated by , who was called to see the patient r/t free air reported from CT scan in abd. Rectal exam done. Patient stooling soft/liquid brown stool. + for c-diff. also viewed patient's right ischial tuberosity - Stage 3 - 8 cm by 4 cm - depth 3.5 cm. ordered wet to dry dressing - dressing applied. Wound deep, edges intact, brown / enrique inner area. Plan to consult wound. No new interventions ordered from at this time. BP low 80's systolic. states BP runs low at baseline. Limited IV access. hr 120's, Chrissy GAMBOA inserting left femoral TLC. + PE - continuing subQ heparin per Dr Welsh. Low H&H & platelets decreased to 57 from 93 today. Brusing noted at TLC attempts from ER on right chest. Code status change once Chrissy Dasilva TILE TRIMMER spoke to family - DNR / DNI. Serum glucose 34, confirmed w/ POC 30 - Chrissy GAMBOA aware - 1 x amp D50 ordered and given @ 2250.
[2020-10-07 22:36] LABS: B Type Natriuretic Peptide 345 pg/mL (<100)
[2020-10-07 22:44] LABS: Anion Gap 12 (12-20); Blood Urea Nitrogen 6 mg/dL (9-16); Calcium 6.4 mg/dL (8.4-10.2); Carbon Dioxide 18 mmol/L (22-29); Chloride 108 mmol/L (96-108); Creatinine Clr Calc Pharmacy 140.7; Estimated Glomerular Filt Rate > 60; Glucose Random 34 mg/dL (60-115); Potassium 2.7 mmol/l (3.3-5.1); Sodium 135 mmol/L (135-145)
[2020-10-07 23:02] LABS: Glucose, Whole Blood 30 mg/dL (60-115)
--- NOTE | 2020-10-07 23:22 | XR_ITS ---
EXAMINATION: XR ABDOMEN KUB CLINICAL INDICATION: Left femoral TLC placement verification COMPARISON: CT 10/07/2020 TECHNIQUE: AP view of the abdomen. FINDINGS: Left femoral central line tip lies in the upper pelvis the left of midline, in the expected region of the left common iliac vessels. Right femoral hardware is partially visualized. The bowel gas pattern is nonobstructive. Redemonstrated patchy airspace opacity at the left lung base. Endplate osteophytes are noted in the lumbar spine. XR/XR KUB IMPRESSION: Left femoral central line tip in the expected region of the left common iliac vessels.
[2020-10-08] VITALS (28 sets, daily range): BP systolic 78–113; BP diastolic 53–88; PULSE 106–127; RESP 13–21; TEMP 34.2–36.8; O2SAT 89–99; BMI 22.1
--- NOTE | 2020-10-08 00:07 | W.PM.CCHP ---
Procedures Central Line Placement Left Femoral: Central Line Comments: Left femoral triple lumen central venous catheter placed in usual sterile conditions under ultrasound guidance for appropriate vascular access without immediate complications. Central line position verified with XRAY. Consent for Procedure: Elective - informed consent obtained (Consent obtained over the phone by ) Time out performed: Yes Sterile Technique Used: Yes Patient placed on monitor/pulse ox: Yes MD prep: mask, gown, gloves and other Central line prep: Chlorhexidine scrub Local anesthesia used: lidocaine 1% Ultrasound used for placement: Yes Central line lumen inserted: triple Post procedure: sutured in place, good blood return, all ports aspirated, flushed, capped and sterile dressing applied Post procedure x-ray: tip of catheter in good position Patient tolerated procedure: well and no complications Complications: none
[2020-10-08 00:29] LABS: Glucose, Whole Blood 72 mg/dL (60-115)
[2020-10-08] MEDS: Potassium Chloride/H20 40 MEQ/100 ML PIGGYBACK 50 MEQ IV ×3 (01:46→06:08)
[2020-10-08] MEDS: Piperacillin Sodium/Tazobactam 3.375 GM in 0.9 % Sodium Chloride 50 ML IV ×4 (01:46→18:12)
[2020-10-08] MEDS: Calcium Gluconate/NaCl,Iso-Osm 2 GM/100 ML PLAST..BAG IV ×2 (01:47→07:46)
[2020-10-08] MEDS: Albumin Human 25 % 100 ML 200 ML IV ×3 (01:48→13:27)
[2020-10-08] MEDS: Magnesium Sulfate/H2O 2 GM/50 ML PIGGYBACK IV (01:48)
[2020-10-08] MEDS: Dextrose 5 % and Lactated Ring 1,000 ML 100 ML IVCONT ×2 (01:53→10:01)
[2020-10-08 03:13] LABS: OBS Int Ctl Valid YES; OBS1 POS (NEG)
[2020-10-08] MEDS: metroNIDAZOLE/NS 500 MG/100 ML PIGGYBACK 100 MG IV ×3 (04:06→18:12)
[2020-10-08] MEDS: Heparin Sodium,Porcine 5,000 UNIT/ML VIAL 5000 UNIT SUBCUT ×3 (04:07→19:51)
[2020-10-08] MEDS: Furosemide 20 MG/2 ML VIAL IVPUSH ×2 (05:10→14:20)
[2020-10-08 05:27] LABS: Base Excess VBG -3.9 mmol/L; HCO3 VBG 21 mmol/L; PCO2 VBG 39 mmHg; PO2 VBG 64 mmHg; pH VBG 7.34 (7.32-7.43)
[2020-10-08 05:37] LABS: Hematocrit 24.7 % (42-52); Hemoglobin 8.1 g/dl (14.0-18.0); Mean Corpuscular HGB Conc 32.8 g/dl (31.0-36.0); Mean Corpuscular Hemoglobin 31.9 pg (27.0-33.0); Mean Corpuscular Volume 97.2 fL (80-98); Mean Platelet Volume 10.3 fL (9.4-12.4); Red Blood Count 2.54 X10*6/uL (4.60-5.80); Red Cell Distribution Width 15.6 % (11.0-16.0)
[2020-10-08 05:49] LABS: INTERNATIONAL NORM RATIO 1.7 (0.9-1.1); Prothrombin Time 20.3 SEC (10.8-13.0)
[2020-10-08 05:56] LABS: Platelet Count 65 X10*3/uL (160-400); WBC ABN SCTR FOR CBC 1; White Blood Count 24.5 X10*3/uL (4.8-10.8)
[2020-10-08 06:24] LABS: Alanine Aminotransferase 15 U/L (0-40); Albumin Level 2.1 g/dL (3.5-5.0); Alkaline Phosphatase 65 U/L (39-117); Anion Gap 16 (12-20); Aspartate Amino Transferase 24 U/L (5-37); Blood Urea Nitrogen 6 mg/dL (9-16); Calcium 6.9 mg/dL (8.4-10.2); Carbon Dioxide 16 mmol/L (22-29); Chloride 112 mmol/L (96-108); Creatinine Clr Calc Pharmacy 143.4; Estimated Glomerular Filt Rate > 60; Glucose Random 93 mg/dL (60-115); Phosphorus 3.6 mg/dL (2.7-4.5); Potassium 3.1 mmol/l (3.3-5.1); Sodium 141 mmol/L (135-145); Total Protein 4.8 g/dL (6.5-8.0)
[2020-10-08 06:32] LABS: Band Neutrophils Percent 10 % (3-5); Eosinophils Absolute Manual 0.5 X10*3/UL (0.0-0.8); Eosinophils Percent Manual 2 % (0-4); Lymphocytes Absolute Manual 0.2 X10*3/uL (0.6-4.8); Lymphocytes Percent Manual 1 % (20-40); Neutrophils Absolute Manual 23.8 X10*3/uL (2.2-7.9); Neutrophils Percent Manual 87 % (45-73)
[2020-10-08 06:35] LABS: Acanthocytes 2+; Macrocytosis 1+; Ovalocytes 1+; RBC Morphology NOTED
[2020-10-08 06:36] LABS: Large Platelet PRESENT; Platelet Estimate DECREASED (NORMAL); Platelet Morphology Comment NORMAL; Polychromasia 1+; Schistocytes 1+; Toxic Vacuolation PRESENT
[2020-10-08 06:37] LABS: Target Cells 1+
[2020-10-08] MEDS: Potassium Chloride/H20 40 MEQ/100 ML PIGGYBACK 100 MEQ IV (07:46)
[2020-10-08] MEDS: Folic Acid 1 MG TABLET PO (07:46)
[2020-10-08] MEDS: Thiamine HCL 100 MG TABLET PO (07:47)
--- NOTE | 2020-10-08 08:31 | ECG_ITS ---
Test Reason : ?rhythm Blood Pressure : / mmHG Vent. Rate : 121 BPM Atrial Rate : 121 BPM P-R Int : 140 ms QRS Dur : 054 ms QT Int : 302 ms P-R-T Axes : 054 073 017 degrees QTc Int : 428 ms Sinus tachycardia Low voltage QRS Septal infarct (cited on or before 07-OCT-2020) Abnormal ECG When compared with ECG of 08-OCT-2020 08:40, Sinus rhythm has replaced Afib. Referred By: Adrián Welsh Electronically Signed By:Rhys Adams
--- NOTE | 2020-10-08 08:41 | PM.PNGS ---
Subjective Subjective Date of Service: 10/08/20 Interval history: Remains on pressors Seems to have stabilized hemodynamically Good urine output Physical Exam Vital Signs: Vital Signs: Last Vital Signs Temp 97.3 F 10/08/20 08:00 Pulse 123 H 10/08/20 08:00 Resp 19 10/08/20 08:00 BP 103/63 10/08/20 08:00 Pulse Ox 94 10/08/20 08:00 Body Mass Index 22.1 Laboratory Results WBC 24.5 X10*3/uL (4. 8-10.8) H 10/08/20 05:15 RBC 2.54 X10*6/uL (4. 60-5.80) L 10/08/20 05:15 Hgb 8.1 g/dl (14.0-18 .0) L 10/08/20 05:15 Hct 24.7 % (42-52) L 10/08/20 05:15 MCV 97.2 fL (80-98) 10/08/20 05:15 MCH 31.9 pg (27.0-33. 0) 10/08/20 05:15 MCHC 32.8 g/dl (31.0-3 6.0) 10/08/20 05:15 RDW 15.6 % (11.0-16.0 ) 10/08/20 05:15 Plt Count 65 X10*3/uL (160- 400) L 10/08/20 05:15 MPV 10.3 fL (9.4-12.4 ) 10/08/20 05:15 Immature Gran % (A uto) Cancelled 10/08/20 05:15 Neut % (Auto) Cancelled 10/08/20 05:15 Lymph % (Auto) Cancelled 10/08/20 05:15 [place] % (Auto) Cancelled 10/08/20 05:15 Eos % (Auto) Cancelled 10/08/20 05:15 Baso % (Auto) Cancelled 10/08/20 05:15 Lymph # (Auto) Cancelled 10/08/20 05:15 [place] # (Auto) Cancelled 10/08/20 05:15 Eos # (Auto) Cancelled 10/08/20 05:15 Baso # (Auto) Cancelled 10/08/20 05:15 Abs Immat Gran (au to) Cancelled 10/08/20 05:15 Absolute Neuts (au to) Cancelled 10/08/20 05:15 Absolute Nucleated RBC 0.000 X10*3/uL (0 .0-0.012) 10/08/20 05:15 Nucleated RBC % (a uto) 0.0 /100WBC (0.0- 0.2) 10/08/20 05:15 Neutrophils % (Man ual) 87 % (45-73) H 10/08/20 05:15 Band Neutrophils % 10 % (3-5) H 10/08/20 05:15 Lymphocytes % (Man ual) 1 % (20-40) L 10/08/20 05:15 Monocytes % (Manua l) 3 % (2-11) 10/07/20 20:18 Eosinophils % (Man ual) 2 % (0-4) 10/08/20 05:15 Metamyelocytes % 3 % 10/07/20 20:18 Abs Neuts (Manual) 23.8 X10*3/uL (2. 2-7.9) H 10/08/20 05:15 Lymphocytes # (Man ual) 0.2 X10*3/uL (0.6 -4.8) L 10/08/20 05:15 Monocytes # (Manua l) 0.6 X10*3/uL (0.0 -1.2) 10/07/20 20:18 Eosinophils # (Man ual) 0.5 X10*3/UL (0.0 -0.8) 10/08/20 05:15 Metamyelocytes # 0.6 X10*3/uL 10/07/20 20:18 Toxic Vacuolation PRESENT 10/08/20 05:15 Platelet Estimate DECREASED (CHELLY L) 10/08/20 05:15 Large Platelets PRESENT 10/08/20 05:15 Plt Morphology Com ment NORMAL 10/08/20 05:15 RBC Morphology NOTED 10/08/20 05:15 Polychromasia 1+ 10/08/20 05:15 Microcytosis 1+ 10/07/20 20:18 Macrocytosis 1+ 10/08/20 05:15 Target Cells 1+ 10/08/20 05:15 Ovalocytes 1+ 10/08/20 05:15 [place] Cells 1+ 10/07/20 11:50 Acanthocytes (Spur ) 2+ 10/08/20 05:15 Schistocytes 1+ 10/08/20 05:15 PT 20.3 SEC (10.8-13 .0) H 10/08/20 05:15 INR 1.7 (0.9-1.1) H 10/08/20 05:15 Hold Blue Top SEE NOTE 10/07/20 12:07 VBG pH 7.34 (7.32-7.43) 10/08/20 05:15 VBG pCO2 39 mmHg 10/08/20 05:15 VBG pO2 64 mmHg 10/08/20 05:15 VBG HCO3 21 mmol/L 10/08/20 05:15 VBG O2 Saturation 87.0 % 10/08/20 05:15 VBG Base Excess -3.9 mmol/L 10/08/20 05:15 Sodium 141 mmol/L (135-1 45) 10/08/20 05:15 Potassium 3.1 mmol/l (3.3-5 .1) L 10/08/20 05:15 Chloride 112 mmol/L (96-10 8) H 10/08/20 05:15 Carbon Dioxide 16 mmol/L (22-29) L 10/08/20 05:15 Anion Gap 16 (12-20) 10/08/20 05:15 BUN 6 mg/dL (9-16) L 10/08/20 05:15 Creatinine 0.52 mg/dL (0.5-1 .4) 10/08/20 05:15 Estim Creat Clear Calc 143.4 10/08/20 05:15 Estimated GFR > 60 10/08/20 05:15 POC Glucose 72 mg/dL (60-115) 10/08/20 00:25 Random Glucose 93 mg/dL (60-115) D 10/08/20 05:15 Lactic Acid 2.2 mmol/L (0.5-2 .0) H* 10/07/20 11:51 Lactic Acid Fup @ 2Hr 3.3 mmol/L (0.5-2 .0) H* 10/07/20 14:47 Lactic Acid Fup @ 4Hr 3.6 mmol/L (0.5-2 .0) H* 10/07/20 20:51 Calcium 6.9 mg/dL (8.4-10 .2) L D 10/08/20 05:15 Phosphorus 3.6 mg/dL (2.7-4. 5) 10/08/20 05:15 Magnesium 2.0 mg/dL (1.6-2. 6) 10/08/20 05:15 Total Bilirubin 3.0 mg/dL (0.0-1. 0) H 10/08/20 05:15 AST 24 U/L (5-37) 10/08/20 05:15 ALT 15 U/L (0-40) 10/08/20 05:15 Alkaline Phosphata se 65 U/L (39-117) D 10/08/20 05:15 Troponin I High Se ns 6.0 ng/L (<3.5-35 .0) 10/07/20 21:56 B-Natriuretic Pept thania 345 pg/mL (<100) H 10/07/20 21:56 Total Protein 4.8 g/dL (6.5-8.0 ) L 10/08/20 05:15 Albumin 2.1 g/dL (3.5-5.0 ) L D 10/08/20 05:15 Hold Yellow Top See Note 10/07/20 12:07 Urine Color YELLOW 10/07/20 12:35 Urine Appearance TURBID 10/07/20 12:35 Urine pH 7.5 (5.0-8.0) 10/07/20 12:35 Ur Specific Gravit y 1.015 (1.005-1.0 25) 10/07/20 12:35 Urine Protein TRACE MG/DL (NEG- TRACE) 10/07/20 12:35 Urine Glucose (UA) 100 MG/DL (NEG) H 10/07/20 12:35 Urine Ketones NEG MG/DL (NEG) 10/07/20 12:35 Urine Blood 3+ (NEG) H 10/07/20 12:35 Urine Nitrite NEG (NEG) 10/07/20 12:35 Ur Leukocyte Ameena ase 3+ (NEG) H 10/07/20 12:35 Urine RBC 5-9 /HPF (0) H 10/07/20 12:35 Urine WBC 50-75 /HPF (0-4) H 10/07/20 12:35 Ur Squamous Epith Cells 3+ /LPF 10/07/20 12:35 Urine Bacteria 4+ /LPF 10/07/20 12:35 Stool Occult Blood POS (NEG) 10/08/20 02:21 C. difficile Toxin A&B Positive (Negati ve) A 10/07/20 16:00 C. difficile Antig en Positive (Negati ve) A 10/07/20 16:00 C. difficile Inter pret SEE NOTE 10/07/20 16:00 Coronavirus (PCR) NEGATIVE (Negati ve) 10/07/20 11:50 Influenza Type A ( PCR) NEGATIVE (Negati ve) 10/07/20 11:50 Influenza Type B ( PCR) NEGATIVE (Negati ve) 10/07/20 11:50 RSV RNA Qual (PCR) NEGATIVE (Negati ve) 10/07/20 11:50 Blood Type A Positive 10/07/20 21:55 Antibody Screen NEGATIVE 10/07/20 21:55 Crossmatch See Detail 10/07/20 21:55 Impressions Abdomen/Pelvis CT 10/07/20 00:00 IMPRESSION: 1. Question of pulmonary emboli in the right lower lobe. 2. Bilateral small pleural effusions with abnormal mass-like area with associated bronchiectasis, left lower lobe. 3. Grossly abnormal edematous colon with small amount of free intraperitoneal fluid and retroperitoneal gas predominantly in the perineum and right perirectal region as described above. 4. Abnormal thick-walled bladder containing air. This could represent cystitis. The air could be from recent catheterization, if this occurred. This critical result was discussed with Dr. Rendon at 7:45 PM on the day of the exam and it was ascertained that the content and urgency of the report was understood at the time of direct communication. Venous Duplex 10/07/20 11:42 IMPRESSION: Chronic DVT right profunda, superficial femoral and popliteal veins. There is moderate calf edema limiting evaluation of the calf veins. Benign-appearing lymph nodes in right groin. There is atherosclerotic minimal plaque seen throughout the arteries. Chest X-Ray 10/07/20 18:34 IMPRESSION: 1. No pneumothorax. 2. Persistent bilateral multifocal airspace opacities. Chest CTA 10/07/20 19:45 IMPRESSION: Moderately extensive bilateral acute pulmonary emboli. VTE: Positive. This critical result was discussed with Tracey Leigh NP at 10:05 PM on the evening of the exam and it was ascertained that the content and urgency of the report was understood at the time of direct communication. KUB X-Ray 10/07/20 23:22 IMPRESSION: Left femoral central line tip in the expected region of the left common iliac vessels. Const: General: comfortable and no acute distress Resp: Effort & Inspection: normal respiratory effort Cardio: Rate: tachycardic GI: Palpation (GI): Soft to palpation, not firm, nontender and no guarding Back/Spine/Pelvis: Other: Has very deep right buttock decubitus ulcer, no gangrene Extrem: Other: Contractures on right arm, severe edema of the right leg Progress Note: A&P Assessment and plan (1) Abnormal CT of the abdomen: Problem details: Has retroperitoneal air in the perirectal area and perineum - likely from the very deep buttock ulcer, with air tracking through the planes of the ischiorectal fat Abdomen benign, no tenderness, no guarding, no rebound Patient also has PE,Severe UTI, pneumonia, and C diff colitis Care as per center medical director No surgical intervention necessary at this time Will continue to follow Patient severely debilitated Status: Acute Fall Risk Details Current Medications: Current Medications Generic Name Dose Route Start Last Admin Trade Name Freq PRN Reason Stop Dose Admin Atorvastatin Calcium 40 mg 10/08/20 21:00 Atorvastatin Calcium 40 Mg Tablet PO BEDTIME SAMAN Folic Acid 1 mg 10/08/20 09:00 10/08/20 07:46 Folic Acid 1 Mg Tablet PO 1 mg DAILY SAMAN Administration Heparin Sodium (Porcine) 5,000 unit 10/08/20 04:00 10/08/20 04:07 Heparin Sodium,Porcine 5,000 Unit/Ml Vial SUBCUT 5,000 unit Q8H SAMAN Administration Albumin Human 100 mls @ 100 mls/hr 10/07/20 19:00 10/08/20 08:34 Kedbumin 25 % IV 10/08/20 13:59 Infused Q6H SAMAN Infusion Piperacillin Sod/Tazobactam 50 mls @ 100 mls/hr 10/07/20 19:00 10/08/20 08:34 Sod 3.375 gm/ Sodium Chloride IV Infused Q6H SAMAN Infusion Metronidazole 500 mg in 100 mls @ 100 mls/hr 10/07/20 19:00 10/08/20 06:59 Flagyl IV Infused Q8H SAMAN Infusion Norepinephrine Bitartrate 8 mg in 250 mls @ 0 mls/hr 10/07/20 18:15 10/08/20 03:33 Levophed IVCONT 0.1 mcg/kg/min .Q0M SAMAN 12.28 mls/hr Titration Protocol Per Protocol Vancomycin HCl 750 mg/ 275 mls @ 183.333 mls/hr 10/07/20 23:00 10/08/20 03:45 Vancomycin HCl 500 mg/ Sodium IV Infused Chloride Q12H SAMAN Infusion Dextrose/Lactated Ringer's 1,000 mls @ 100 mls/hr 10/07/20 23:45 10/08/20 01:53 D5lr IVCONT 100 mls/hr .Q10H SAMAN Administration Pharmacy Consult 1 each 10/07/20 13:09 Consult Rx Perform Med Rec MISCELLANE ONCE PRN Consult order Pharmacy Consult 1 each 10/07/20 21:16 Consult Rx Vancomycin Dosing MISCELLANE DAILY PRN Consult order Thiamine HCl 100 mg 10/08/20 09:00 10/08/20 07:47 Thiamine Hcl 100 Mg Tablet PO 100 mg DAILY SAMAN Administration Time Spent With Patient Time: Total time spent is greater than 50% in coordination of care (as documented) at patient's floor/unit and/or counseling patient: Time with patient: 15 - 24 minutes
--- NOTE | 2020-10-08 11:15 | MHC.CLN ---
PT IS MODERATELY MALNOURISHED RECOMMEND ADDING ENSURE TID AND AIME TO INCREASE KCALS AND PROMOTE WOUND HEALING PT IS HIGH RISK FOR RE-FEEDING; MONITOR MG, PHOS AND K+ SEE ALSO CLINICAL NUTRITION ASSESSMENT
[2020-10-08 12:52] LABS: Anion Gap 15 (12-20); Blood Urea Nitrogen 5 mg/dL (9-16); Calcium 7.2 mg/dL (8.4-10.2); Carbon Dioxide 18 mmol/L (22-29); Chloride 115 mmol/L (96-108); Estimated Glomerular Filt Rate > 60; Glucose Random 195 mg/dL (60-115); Potassium 3.7 mmol/l (3.3-5.1); Sodium 144 mmol/L (135-145)
--- NOTE | 2020-10-08 14:25 | P.PNCC_ITS ---
Subjective Subjective Date of Service: 10/08/20 Interval History: 59-year-old gentleman with underlying history of CVA with residual right-sided hemiplegia, chronic right femoral DVT, COPD, chronic diarrhea, prior Gram-negative UTI admitted on 10/07/2020 from home where he was cared for by his with complaints of weakness and worsening diarrhea. On ER evaluation patient noted to be in septic shock with multifactorial origin including Gram-negative bacteremia secondary to UTI, C diff colitis, ischial decubitus ulcer. He CT abdomen was remarkable for pelvic soft tissue gas that w as evaluated by General surgery and deemed to be secondary to air tracking from his decubitus also and not require surgical intervention. His CT angiogram of the chest is also remarkable for segmental pulmonary embolism that appears to be chronic. He has been covered with broad-spectrum antibiotics. Initial vasopressor support was delayed secondary to inability to place central venous access before initial colloidal resuscitation. Physical Exam Vital Signs: Vital Signs: Last Vital Signs Temp 98.1 F 10/08/20 14:00 Pulse 117 H 10/08/20 14:00 Resp 20 10/08/20 14:00 BP 104/78 10/08/20 14:00 Pulse Ox 95 10/08/20 14:00 Body Mass Index 22.1 Const: General: no acute distress and lethargic (Arousable) Orientation/consciousness: lethargic (Arousable) Eyes: Sclerae: sclerae normal Neck: Neck: Yes no lymphadenopathy, Yes trachea midline and Yes supple Resp: Effort & Inspection: normal respiratory effort and no respiratory distress Auscultation: rales (diffuse bilateral) Cardio: Rate: tachycardic Rhythm: regular rhythm Heart sounds: no gallops, no murmurs and no rubs GI: Palpation (GI): Soft to palpation and Other GI palpation findings present ( Nontender) Auscultation: normal bowel sounds Extrem: General: No clubbing, No cyanosis and Yes edema (2+ bilateral) Objective Data Labs CBC & Chem 7: 10/08/20 05:15 10/08/20 12:09 Labs: Laboratory Results - last 24 hr 10/07/20 10/07/20 10/07/20 12:35 14:47 16:00 WBC RBC Hgb Hct MCV MCH MCHC RDW Plt Count MPV Immature Gran % (Auto) Neut % (Auto) Lymph % (Auto) Summers % (Auto) Eos % (Auto) Baso % (Auto) Lymph # (Auto) Summers # (Auto) Eos # (Auto) Baso # (Auto) Abs Immat Gran (auto) Absolute Neuts (auto) Absolute Nucleated RBC Nucleated RBC % (auto) Neutrophils % (Manual) Band Neutrophils % Lymphocytes % (Manual) Monocytes % (Manual) Eosinophils % (Manual) Metamyelocytes % Abs Neuts (Manual) Lymphocytes # (Manual) Monocytes # (Manual) Eosinophils # (Manual) Metamyelocytes # Toxic Vacuolation Platelet Estimate Large Platelets Plt Morphology Comment RBC Morphology Polychromasia Microcytosis Macrocytosis Target Cells Ovalocytes Acanthocytes (Spur) Schistocytes PT INR VBG pH VBG pCO2 VBG pO2 VBG HCO3 VBG O2 Saturation VBG Base Excess Sodium Potassium Chloride Carbon Dioxide Anion Gap BUN Creatinine Estim Creat Clear Calc Estimated GFR POC Glucose Random Glucose Lactic Acid Fup @ 2Hr 3.3 H* Lactic Acid Fup @ 4Hr Calcium Phosphorus Magnesium Total Bilirubin AST ALT Alkaline Phosphatase Troponin I High Sens B-Natriuretic Peptide Total Protein Albumin Urine RBC 5-9 H Urine WBC 50-75 H Ur Squamous Epith Cells 3+ Urine Bacteria 4+ Stool Occult Blood C. difficile Toxin A&B Positive A C. difficile Antigen Positive A C. difficile Interpret SEE NOTE Blood Type Antibody Screen Crossmatch 10/07/20 10/07/20 10/07/20 20:18 20:51 21:55 WBC 20.3 H RBC 2.39 L D Hgb 7.8 L D Hct 23.5 L D MCV 98.3 H MCH 32.6 MCHC 33.2 RDW 15.9 Plt Count 57 L D MPV 10.1 Immature Gran % (Auto) Cancelled Neut % (Auto) Cancelled Lymph % (Auto) Cancelled Summers % (Auto) Cancelled Eos % (Auto) Cancelled Baso % (Auto) Cancelled Lymph # (Auto) Cancelled Summers # (Auto) Cancelled Eos # (Auto) Cancelled Baso # (Auto) Cancelled Abs Immat Gran (auto) Cancelled Absolute Neuts (auto) Cancelled Absolute Nucleated RBC 0.000 Nucleated RBC % (auto) 0.0 Neutrophils % (Manual) 67 Band Neutrophils % 24 H Lymphocytes % (Manual) 3 L Monocytes % (Manual) 3 Eosinophils % (Manual) Metamyelocytes % 3 Abs Neuts (Manual) 18.5 H Lymphocytes # (Manual) 0.6 Monocytes # (Manual) 0.6 Eosinophils # (Manual) Metamyelocytes # 0.6 Toxic Vacuolation Platelet Estimate DECREASED Large Platelets Plt Morphology Comment NORMAL RBC Morphology NOTED Polychromasia Microcytosis 1+ Macrocytosis 1+ Target Cells Ovalocytes Acanthocytes (Spur) Schistocytes PT INR VBG pH VBG pCO2 VBG pO2 VBG HCO3 VBG O2 Saturation VBG Base Excess Sodium 135 Potassium 2.7 L D Chloride 108 Carbon Dioxide 18 L Anion Gap 12 BUN 6 L Creatinine 0.53 Estim Creat Clear Calc 140.7 Estimated GFR > 60 POC Glucose Random Glucose 34 L* Lactic Acid Fup @ 2Hr Lactic Acid Fup @ 4Hr 3.6 H* Calcium 6.4 L D Phosphorus Magnesium Total Bilirubin AST ALT Alkaline Phosphatase Troponin I High Sens B-Natriuretic Peptide Total Protein Albumin Urine RBC Urine WBC Ur Squamous Epith Cells Urine Bacteria Stool Occult Blood C. difficile Toxin A&B C. difficile Antigen C. difficile Interpret Blood Type Antibody Screen Crossmatch 10/07/20 10/07/20 10/07/20 21:55 21:56 21:56 WBC RBC Hgb Hct MCV MCH MCHC RDW Plt Count MPV Immature Gran % (Auto) Neut % (Auto) Lymph % (Auto) Summers % (Auto) Eos % (Auto) Baso % (Auto) Lymph # (Auto) Summers # (Auto) Eos # (Auto) Baso # (Auto) Abs Immat Gran (auto) Absolute Neuts (auto) Absolute Nucleated RBC Nucleated RBC % (auto) Neutrophils % (Manual) Band Neutrophils % Lymphocytes % (Manual) Monocytes % (Manual) Eosinophils % (Manual) Metamyelocytes % Abs Neuts (Manual) Lymphocytes # (Manual) Monocytes # (Manual) Eosinophils # (Manual) Metamyelocytes # Toxic Vacuolation Platelet Estimate Large Platelets Plt Morphology Comment RBC Morphology Polychromasia Microcytosis Macrocytosis Target Cells Ovalocytes Acanthocytes (Spur) Schistocytes PT 24.3 H INR 2.0 H VBG pH VBG pCO2 VBG pO2 VBG HCO3 VBG O2 Saturation VBG Base Excess Sodium Potassium Chloride Carbon Dioxide Anion Gap BUN Creatinine Estim Creat Clear Calc Estimated GFR POC Glucose Random Glucose Lactic Acid Fup @ 2Hr Lactic Acid Fup @ 4Hr Calcium Phosphorus Magnesium Total Bilirubin AST ALT Alkaline Phosphatase Troponin I High Sens 6.0 B-Natriuretic Peptide 345 H Total Protein Albumin Urine RBC Urine WBC Ur Squamous Epith Cells Urine Bacteria Stool Occult Blood C. difficile Toxin A&B C. difficile Antigen C. difficile Interpret Blood Type A Positive Antibody Screen NEGATIVE Crossmatch See Detail 10/07/20 10/08/20 10/08/20 22:47 00:25 02:21 WBC RBC Hgb Hct MCV MCH MCHC RDW Plt Count MPV Immature Gran % (Auto) Neut % (Auto) Lymph % (Auto) Summers % (Auto) Eos % (Auto) Baso % (Auto) Lymph # (Auto) Summers # (Auto) Eos # (Auto) Baso # (Auto) Abs Immat Gran (auto) Absolute Neuts (auto) Absolute Nucleated RBC Nucleated RBC % (auto) Neutrophils % (Manual) Band Neutrophils % Lymphocytes % (Manual) Monocytes % (Manual) Eosinophils % (Manual) Metamyelocytes % Abs Neuts (Manual) Lymphocytes # (Manual) Monocytes # (Manual) Eosinophils # (Manual) Metamyelocytes # Toxic Vacuolation Platelet Estimate Large Platelets Plt Morphology Comment RBC Morphology Polychromasia Microcytosis Macrocytosis Target Cells Ovalocytes Acanthocytes (Spur) Schistocytes PT INR VBG pH VBG pCO2 VBG pO2 VBG HCO3 VBG O2 Saturation VBG Base Excess Sodium Potassium Chloride Carbon Dioxide Anion Gap BUN Creatinine Estim Creat Clear Calc Estimated GFR POC Glucose 30 L* 72 Random Glucose Lactic Acid Fup @ 2Hr Lactic Acid Fup @ 4Hr Calcium Phosphorus Magnesium Total Bilirubin AST ALT Alkaline Phosphatase Troponin I High Sens B-Natriuretic Peptide Total Protein Albumin Urine RBC Urine WBC Ur Squamous Epith Cells Urine Bacteria Stool Occult Blood POS C. difficile Toxin A&B C. difficile Antigen C. difficile Interpret Blood Type Antibody Screen Crossmatch 10/08/20 10/08/20 10/08/20 05:15 05:15 05:15 WBC 24.5 H RBC 2.54 L Hgb 8.1 L Hct 24.7 L MCV 97.2 MCH 31.9 MCHC 32.8 RDW 15.6 Plt Count 65 L MPV 10.3 Immature Gran % (Auto) Cancelled Neut % (Auto) Cancelled Lymph % (Auto) Cancelled Summers % (Auto) Cancelled Eos % (Auto) Cancelled Baso % (Auto) Cancelled Lymph # (Auto) Cancelled Summers # (Auto) Cancelled Eos # (Auto) Cancelled Baso # (Auto) Cancelled Abs Immat Gran (auto) Cancelled Absolute Neuts (auto) Cancelled Absolute Nucleated RBC 0.000 Nucleated RBC % (auto) 0.0 Neutrophils % (Manual) 87 H Band Neutrophils % 10 H Lymphocytes % (Manual) 1 L Monocytes % (Manual) Eosinophils % (Manual) 2 Metamyelocytes % Abs Neuts (Manual) 23.8 H Lymphocytes # (Manual) 0.2 L Monocytes # (Manual) Eosinophils # (Manual) 0.5 Metamyelocytes # Toxic Vacuolation PRESENT Platelet Estimate DECREASED Large Platelets PRESENT Plt Morphology Comment NORMAL RBC Morphology NOTED Polychromasia 1+ Microcytosis Macrocytosis 1+ Target Cells 1+ Ovalocytes 1+ Acanthocytes (Spur) 2+ Schistocytes 1+ PT INR VBG pH 7.34 VBG pCO2 39 VBG pO2 64 VBG HCO3 21 VBG O2 Saturation 87.0 VBG Base Excess -3.9 Sodium 141 Potassium 3.1 L Chloride 112 H Carbon Dioxide 16 L Anion Gap 16 BUN 6 L Creatinine 0.52 Estim Creat Clear Calc 143.4 Estimated GFR > 60 POC Glucose Random Glucose 93 D Lactic Acid Fup @ 2Hr Lactic Acid Fup @ 4Hr Calcium 6.9 L D Phosphorus 3.6 Magnesium 2.0 Total Bilirubin 3.0 H AST 24 ALT 15 Alkaline Phosphatase 65 D Troponin I High Sens B-Natriuretic Peptide Total Protein 4.8 L Albumin 2.1 L D Urine RBC Urine WBC Ur Squamous Epith Cells Urine Bacteria Stool Occult Blood C. difficile Toxin A&B C. difficile Antigen C. difficile Interpret Blood Type Antibody Screen Crossmatch 10/08/20 10/08/20 05:15 12:09 WBC RBC Hgb Hct MCV MCH MCHC RDW Plt Count MPV Immature Gran % (Auto) Neut % (Auto) Lymph % (Auto) Summers % (Auto) Eos % (Auto) Baso % (Auto) Lymph # (Auto) Summers # (Auto) Eos # (Auto) Baso # (Auto) Abs Immat Gran (auto) Absolute Neuts (auto) Absolute Nucleated RBC Nucleated RBC % (auto) Neutrophils % (Manual) Band Neutrophils % Lymphocytes % (Manual) Monocytes % (Manual) Eosinophils % (Manual) Metamyelocytes % Abs Neuts (Manual) Lymphocytes # (Manual) Monocytes # (Manual) Eosinophils # (Manual) Metamyelocytes # Toxic Vacuolation Platelet Estimate Large Platelets Plt Morphology Comment RBC Morphology Polychromasia Microcytosis Macrocytosis Target Cells Ovalocytes Acanthocytes (Spur) Schistocytes PT 20.3 H INR 1.7 H VBG pH VBG pCO2 VBG pO2 VBG HCO3 VBG O2 Saturation VBG Base Excess Sodium 144 Potassium 3.7 Chloride 115 H Carbon Dioxide 18 L Anion Gap 15 BUN 5 L Creatinine 0.54 Estim Creat Clear Calc 148.0 Estimated GFR > 60 POC Glucose Random Glucose 195 H D Lactic Acid Fup @ 2Hr Lactic Acid Fup @ 4Hr Calcium 7.2 L Phosphorus Magnesium Total Bilirubin AST ALT Alkaline Phosphatase Troponin I High Sens B-Natriuretic Peptide Total Protein Albumin Urine RBC Urine WBC Ur Squamous Epith Cells Urine Bacteria Stool Occult Blood C. difficile Toxin A&B C. difficile Antigen C. difficile Interpret Blood Type Antibody Screen Crossmatch Microbiology Microbiology Results: Microbiology 10/07/20 00:00 Urine Catheterized - Straight Catheter Urine Culture - Preliminary Culture in progress. 10/07/20 12:07 Blood - Venous Blood Culture - Preliminary 10/07/20 11:49 Blood - Venous Blood Culture - Preliminary Progress Note: A&P Assessment and plan (1) Septic shock: Status: Acute Assessment and Plan: Assessment: 59-year-old gentleman with underlying history of residual right- sided hemiplegia from a prior CVA admitted with adult failure to thrive, septic shock, Gram-negative bacteremia, UTI, Clostridium difficile colitis. Plan: Neuro: Residual right-sided hemiplegia after remote CVA with right upper extremity contracture. Cardiac: Septic shock, continue to titrate off pressor support as tolerated. Pulmonary: Acute hypoxic respiratory failure secondary to a combination of pulmonary edema from IV fluid resuscitation with low oncotic pressure and micro aspirations. Continue with improving cardiac pressure, gentle diuresis, and pulmonary toilet. Renal: No acute issues. Endo: No acute issues. GI: Diarrhea secondary to C. diff. colitis. Continue IV Flagyl ID: Gram-negative bacteremia with urinary source. Continue Zosyn until speciation. Decubitus ulcer - evaluated by surgery and does not require debridement. Continue vancomycin until cultures are speciated. Heme/Onc: Known chronic right lower extremity DVT. Pulmonary emboli segmental/subsegmental and appear chronic. No anticoagulation at this time secondary to thrombocytopenia. Will reconsider anticoagulation after thrombocytopenia improves. Thrombocytopenia is likely septic shock related. Psych: No acute issues. Miscellaneous: No acute issues. Prophylaxis: Heparin Diet: Regular Critical care time spent: 90 minutes (2) UTI (urinary tract infection): Status: Acute (3) Gram-negative bacteremia: Status: Acute (4) DVT (deep venous thrombosis): Status: Acute (5) Pulmonary embolism: Status: Acute (6) Decubitus ulcer: Status: Acute (7) C. difficile colitis: Status: Acute (8) Thrombocytopenia: Status: Acute Time Spent With Patient Total time spent with greater than 50% in coordination of care (as documented) at patient's floor/unit and/or counseling patient:: 0 Critical Care Time Critical Care Time (minutes): 90
[2020-10-08] MEDS: Albumin Human 25 % 100 ML IV ×2 (16:31→23:19)
--- NOTE | 2020-10-08 17:29 | P.CONIM_ITS ---
History of Present Illness Data of Consult Service Date: 10/08/20 Requesting physician: Adrián Welsh Primary Care Provider: Nonstaff Physician HPI Reason for consult: ischial and prianal wound The patient is a 59-year-old male with baseline paraplegia from a stroke in the past who was admitted with sepsis to the hospital and wounds in the ischial area. He got admitted to the ICU where he is on pressors and during the workup it was noted he has urinary tract infection, C. difficile colitis, and this ischial wound. His antibiotics have been adjusted for the C. difficile colitis and he is being treated for his urinary tract infection. Wound care has been consulted to help manage the open wounds. These wounds have been present for a while and his was at home taking care of him although he was not allowing her to do consistent wound care dressings recently which may have made the wounds worse. Review of Systems Review of Systems: Yes Unobtainable due to mental condition [facility], LAT[facility] Medical History COPD (chronic obstructive pulmonary disease) Hemiplegia affecting right dominant side Stroke Wheelchair bound Family History Father Aneurysm Brother Pancreatic cancer Social History Alcohol intake: former Smoking Status: Former smoker Smoked in Last 30 Days: No Use of substances other than those prescribed or required for medical reasons: Unknown Currently Displaying Signs/Symptoms of Drug Intoxication Withdrawal: No Advance Directives: Yes Advance Directives Information Provided: Yes Advance Directives on File: No (FILED IN [place]) Do you have thoughts of harming others: None Do you have a plan to hurt others: No Plan service: No Current occupational status: disabled Meds Allergies Allergy/AdvReac Type Severity Reaction Status Date / Time Beta-Blockers AdvReac Unknown ACTIVE Verified 10/08/20 04:41 (Beta-Adrenergic Bloc COPD [BETA-BLOCKERS (BETA-ADRENERGIC BLOC] Home Medications Medication Instructions Recorded Confirmed Type albuterol sulfate [ProAir HFA] 2 puff INHALATION Q6H PRN 10/07/20 10/07/20 History atorvastatin 40 mg PO DAILY 10/07/20 10/07/20 History rrbhqrorlyw-zdipyvazm-gjdxdzyn 1 inh INHALATION DAILY 10/07/20 10/07/20 History [Trelegy Ellipta] folic acid 1 mg PO DAILY 10/07/20 10/07/20 History gabapentin 300 mg PO BEDTIME PRN 10/07/20 10/07/20 History thiamine HCl (vitamin B1) 100 mg PO DAILY 10/07/20 10/07/20 History Physical Exam Vital Signs and Narrative: Vital Signs: Last Vital Signs Temp 97.9 F 10/08/20 16:00 Pulse 121 H 10/08/20 16:00 Resp 19 10/08/20 16:00 BP 99/78 10/08/20 16:00 Pulse Ox 93 10/08/20 16:00 Body Mass Index 22.1 Skin: Other: On rolling the patient over he is stooling liquid and pasty stool continuously from his anal opening. Just to the right of his anal opening there is a wound which communicates with the ano/rectal passage and through which stool is also coming from. This wound does go deeper towards the gluteal tissue but there is a smaller bit of tissue connect Ting it from the anal opening. I do not believe that this goes directly through the sphincter muscle. This area is sore and tender on manipulation for the patient With rectal exam no palpable masses are noted. The perineal area especially on the right side has some abrasions of and pre skin breakdown probably secondary to a little bit of pressure as well as moisture. The patient on the right side does have a significant ischial wound down to subcutaneous fat and some muscle which is relatively clean. This on probing does not communicate with the anal opening wound or go anywhere towards that area. This seems to be a straightforward pressure grade 3 ulcer secondary to his paraplegia. The perineal and perirectal area has skin changes at risk for maceration of tissue secondary to the moisture and the constant stooling. The patient has edema on the right lower extremity secondary to chronic DVTs and has both the left foot and right foot secured in bunny boots Results Labs CBC and Chem 7: 10/08/20 05:15 10/08/20 12:09 Labs: Laboratory Results - last 24 hr 10/07/20 10/07/20 10/07/20 14:47 20:18 20:51 MCV 98.3 H MCH 32.6 MCHC 33.2 RDW 15.9 Plt Count 57 L D MPV 10.1 Immature Gran % (Auto) Cancelled Neut % (Auto) Cancelled Lymph % (Auto) Cancelled Prentiss % (Auto) Cancelled Eos % (Auto) Cancelled Baso % (Auto) Cancelled Lymph # (Auto) Cancelled Prentiss # (Auto) Cancelled Eos # (Auto) Cancelled Baso # (Auto) Cancelled Abs Immat Gran (auto) Cancelled Absolute Neuts (auto) Cancelled Absolute Nucleated RBC 0.000 Nucleated RBC % (auto) 0.0 Neutrophils % (Manual) 67 Band Neutrophils % 24 H Lymphocytes % (Manual) 3 L Monocytes % (Manual) 3 Eosinophils % (Manual) Metamyelocytes % 3 Abs Neuts (Manual) 18.5 H Lymphocytes # (Manual) 0.6 Monocytes # (Manual) 0.6 Eosinophils # (Manual) Metamyelocytes # 0.6 Toxic Vacuolation Platelet Estimate DECREASED Large Platelets Plt Morphology Comment NORMAL RBC Morphology NOTED Polychromasia Microcytosis 1+ Macrocytosis 1+ Target Cells Ovalocytes Acanthocytes (Spur) Schistocytes PT INR VBG pH VBG pCO2 VBG pO2 VBG HCO3 VBG O2 Saturation VBG Base Excess Anion Gap Estim Creat Clear Calc Estimated GFR POC Glucose Random Glucose Lactic Acid Fup @ 2Hr 3.3 H* Lactic Acid Fup @ 4Hr 3.6 H* Calcium Phosphorus Magnesium Total Bilirubin AST ALT Alkaline Phosphatase Troponin I High Sens B-Natriuretic Peptide Total Protein Albumin Stool Occult Blood Blood Type Antibody Screen Crossmatch 10/07/20 10/07/20 10/07/20 21:55 21:55 21:56 MCV MCH MCHC RDW Plt Count MPV Immature Gran % (Auto) Neut % (Auto) Lymph % (Auto) Prentiss % (Auto) Eos % (Auto) Baso % (Auto) Lymph # (Auto) Prentiss # (Auto) Eos # (Auto) Baso # (Auto) Abs Immat Gran (auto) Absolute Neuts (auto) Absolute Nucleated RBC Nucleated RBC % (auto) Neutrophils % (Manual) Band Neutrophils % Lymphocytes % (Manual) Monocytes % (Manual) Eosinophils % (Manual) Metamyelocytes % Abs Neuts (Manual) Lymphocytes # (Manual) Monocytes # (Manual) Eosinophils # (Manual) Metamyelocytes # Toxic Vacuolation Platelet Estimate Large Platelets Plt Morphology Comment RBC Morphology Polychromasia Microcytosis Macrocytosis Target Cells Ovalocytes Acanthocytes (Spur) Schistocytes PT 24.3 H INR 2.0 H VBG pH VBG pCO2 VBG pO2 VBG HCO3 VBG O2 Saturation VBG Base Excess Anion Gap 12 Estim Creat Clear Calc 140.7 Estimated GFR > 60 POC Glucose Random Glucose 34 L* Lactic Acid Fup @ 2Hr Lactic Acid Fup @ 4Hr Calcium 6.4 L D Phosphorus Magnesium Total Bilirubin AST ALT Alkaline Phosphatase Troponin I High Sens B-Natriuretic Peptide Total Protein Albumin Stool Occult Blood Blood Type A Positive Antibody Screen NEGATIVE Crossmatch See Detail 10/07/20 10/07/20 10/08/20 21:56 22:47 00:25 MCV MCH MCHC RDW Plt Count MPV Immature Gran % (Auto) Neut % (Auto) Lymph % (Auto) Prentiss % (Auto) Eos % (Auto) Baso % (Auto) Lymph # (Auto) Prentiss # (Auto) Eos # (Auto) Baso # (Auto) Abs Immat Gran (auto) Absolute Neuts (auto) Absolute Nucleated RBC Nucleated RBC % (auto) Neutrophils % (Manual) Band Neutrophils % Lymphocytes % (Manual) Monocytes % (Manual) Eosinophils % (Manual) Metamyelocytes % Abs Neuts (Manual) Lymphocytes # (Manual) Monocytes # (Manual) Eosinophils # (Manual) Metamyelocytes # Toxic Vacuolation Platelet Estimate Large Platelets Plt Morphology Comment RBC Morphology Polychromasia Microcytosis Macrocytosis Target Cells Ovalocytes Acanthocytes (Spur) Schistocytes PT INR VBG pH VBG pCO2 VBG pO2 VBG HCO3 VBG O2 Saturation VBG Base Excess Anion Gap Estim Creat Clear Calc Estimated GFR POC Glucose 30 L* 72 Random Glucose Lactic Acid Fup @ 2Hr Lactic Acid Fup @ 4Hr Calcium Phosphorus Magnesium Total Bilirubin AST ALT Alkaline Phosphatase Troponin I High Sens 6.0 B-Natriuretic Peptide 345 H Total Protein Albumin Stool Occult Blood Blood Type Antibody Screen Crossmatch 10/08/20 10/08/20 10/08/20 02:21 05:15 05:15 MCV 97.2 MCH 31.9 MCHC 32.8 RDW 15.6 Plt Count 65 L MPV 10.3 Immature Gran % (Auto) Cancelled Neut % (Auto) Cancelled Lymph % (Auto) Cancelled Prentiss % (Auto) Cancelled Eos % (Auto) Cancelled Baso % (Auto) Cancelled Lymph # (Auto) Cancelled Prentiss # (Auto) Cancelled Eos # (Auto) Cancelled Baso # (Auto) Cancelled Abs Immat Gran (auto) Cancelled Absolute Neuts (auto) Cancelled Absolute Nucleated RBC 0.000 Nucleated RBC % (auto) 0.0 Neutrophils % (Manual) 87 H Band Neutrophils % 10 H Lymphocytes % (Manual) 1 L Monocytes % (Manual) Eosinophils % (Manual) 2 Metamyelocytes % Abs Neuts (Manual) 23.8 H Lymphocytes # (Manual) 0.2 L Monocytes # (Manual) Eosinophils # (Manual) 0.5 Metamyelocytes # Toxic Vacuolation PRESENT Platelet Estimate DECREASED Large Platelets PRESENT Plt Morphology Comment NORMAL RBC Morphology NOTED Polychromasia 1+ Microcytosis Macrocytosis 1+ Target Cells 1+ Ovalocytes 1+ Acanthocytes (Spur) 2+ Schistocytes 1+ PT INR VBG pH VBG pCO2 VBG pO2 VBG HCO3 VBG O2 Saturation VBG Base Excess Anion Gap 16 Estim Creat Clear Calc 143.4 Estimated GFR > 60 POC Glucose Random Glucose 93 D Lactic Acid Fup @ 2Hr Lactic Acid Fup @ 4Hr Calcium 6.9 L D Phosphorus 3.6 Magnesium 2.0 Total Bilirubin 3.0 H AST 24 ALT 15 Alkaline Phosphatase 65 D Troponin I High Sens B-Natriuretic Peptide Total Protein 4.8 L Albumin 2.1 L D Stool Occult Blood POS Blood Type Antibody Screen Crossmatch 10/08/20 10/08/20 10/08/20 05:15 05:15 12:09 MCV MCH MCHC RDW Plt Count MPV Immature Gran % (Auto) Neut % (Auto) Lymph % (Auto) Prentiss % (Auto) Eos % (Auto) Baso % (Auto) Lymph # (Auto) Prentiss # (Auto) Eos # (Auto) Baso # (Auto) Abs Immat Gran (auto) Absolute Neuts (auto) Absolute Nucleated RBC Nucleated RBC % (auto) Neutrophils % (Manual) Band Neutrophils % Lymphocytes % (Manual) Monocytes % (Manual) Eosinophils % (Manual) Metamyelocytes % Abs Neuts (Manual) Lymphocytes # (Manual) Monocytes # (Manual) Eosinophils # (Manual) Metamyelocytes # Toxic Vacuolation Platelet Estimate Large Platelets Plt Morphology Comment RBC Morphology Polychromasia Microcytosis Macrocytosis Target Cells Ovalocytes Acanthocytes (Spur) Schistocytes PT 20.3 H INR 1.7 H VBG pH 7.34 VBG pCO2 39 VBG pO2 64 VBG HCO3 21 VBG O2 Saturation 87.0 VBG Base Excess -3.9 Anion Gap 15 Estim Creat Clear Calc 148.0 Estimated GFR > 60 POC Glucose Random Glucose 195 H D Lactic Acid Fup @ 2Hr Lactic Acid Fup @ 4Hr Calcium 7.2 L Phosphorus Magnesium Total Bilirubin AST ALT Alkaline Phosphatase Troponin I High Sens B-Natriuretic Peptide Total Protein Albumin Stool Occult Blood Blood Type Antibody Screen Crossmatch Imaging Radiologist's Impressions: Impressions Abdomen/Pelvis CT 10/07/20 00:00 IMPRESSION: 1. Question of pulmonary emboli in the right lower lobe. 2. Bilateral small pleural effusions with abnormal mass-like area with associated bronchiectasis, left lower lobe. 3. Grossly abnormal edematous colon with small amount of free intraperitoneal fluid and retroperitoneal gas predominantly in the perineum and right perirectal region as described above. 4. Abnormal thick-walled bladder containing air. This could represent cystitis. The air could be from recent catheterization, if this occurred. This critical result was discussed with Dr. Rendon at 7:45 PM on the day of the exam and it was ascertained that the content and urgency of the report was understood at the time of direct communication. Chest X-Ray 10/07/20 18:34 IMPRESSION: 1. No pneumothorax. 2. Persistent bilateral multifocal airspace opacities. Chest CTA 10/07/20 19:45 IMPRESSION: Moderately extensive bilateral acute pulmonary emboli. VTE: Positive. This critical result was discussed with Tracey Leigh NP at 10:05 PM on the evening of the exam and it was ascertained that the content and urgency of the report was understood at the time of direct communication. KUB X-Ray 10/07/20 23:22 IMPRESSION: Left femoral central line tip in the expected region of the left common iliac vessels. Assessment and Plan (1) Septic shock: Status: Acute Assessment: 59-year-old gentleman with underlying history of residual right-sided hemiplegia from a prior CVA admitted with adult failure to thrive, septic shock, Gram-negative bacteremia, UTI, Clostridium difficile colitis. In regard to the wounds the patient has a stage III right ischial wound secondary to his paraplegia and not being able to shift and move. Plan is to continue with just wet to dry dressing right now. Advanced wound care can be considered once the patient is more stable hemodynamically and when we can adv ance and enterall feeding knowing that he will absorb nutrients. Right now the kim focus would be to get him off pressors continue with the antibiotics to resolve the C. difficile colitis and hopefully this does not progress. Eventually when the patient is doing better may consider a wound VAC to try to close off this defect The perianal wound is a little more interesting and I do not think it is indeed a pressure wound. 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 Irrigating it out to keep it clean and then maybe even considering opening it in continuation with the anal opening and allowing for it to eventually close by secondary intention. General surgery can follow- through with evaluation for this. At this point with the patient on pressors and the C difficile colitis all of this would be difficult to accomplish. If stooling becomes a significant issue with the wound creating more of an infected site may consider a rectal tube but I would be concerned that this create press ure necrosis within the anal rectal area and this paraplegic patient Offloading a special mattress rotating the patient every 2-3 hours barrier creams to the perirectal anal areas and anywhere else that is moist is advised. Continue with bunny boots to bilateral lower extremities Hopefully we can wean this patient off pressors improve the colitis picture and increase his protein nutrition. Nutrition consult would be beneficial. Consideration should be made for long-term facility care for this patient instead of going home as just his physical rotation and moving needs to prevent further pressure ulcers from forming is going to be considerable (2) UTI (urinary tract infection): Status: Acute (3) Gram-negative bacteremia: Status: Acute (4) DVT (deep venous thrombosis): Status: Acute (5) Pulmonary embolism: Status: Acute (6) Decubitus ulcer: Status: Acute (7) C. difficile colitis: Status: Acute (8) Thrombocytopenia: Status: Acute
--- NOTE | 2020-10-08 17:43 | PC.NURSE ---
S/E Afebrile Expressive aphasia, follows commands WBC 24.5, HR 120's Blood cultures positive 2/ gram neg rods - MD aware Currently on Zosyn and Vanco - trough 10/[address] - EKG confirmed Still requiring pressor support TLC L Fem intact - dressing changed R>L lower extremity edema / scrotal edema Albumin 100cc Q6hr ordered LS coarse/crackles throughout O2 requirements increased requiring 10-15L oxymizer - MD aware Moderate amount of thick oral secretions Weak cough, unable to effectively clear throat; requiring frequent suctioning Lasix 20mg IVP ordered and administered - 350cc urine output, yellow Fluids discontinued Refused all PO nutrition Multiple liquid brown BM's - currently on Flagyl for CDiff Multiple extensive skin integrity concerns - see chart documentation & photos and Dr Minor at bedside Stage III to right hip/buttock - wet to dry dressing per wound care Patient placed on sizewise bed, repo q2hr Heel protectors in place Family updated
[2020-10-09] VITALS (24 sets, daily range): BP systolic 92–114; BP diastolic 63–82; PULSE 101–123; RESP 15–20; TEMP 36–36.7; O2SAT 88–99; BMI 19.9
--- NOTE | 2020-10-09 | XR_ITS ---
EXAMINATION: XR CHEST CLINICAL INFORMATION: NG tube placement COMPARISON: 10/07/2020 TECHNIQUE: Frontal view of the chest was obtained. FINDINGS: There is a Dobbhoff tube in place which extends into the stomach. Cardiac leads overlie the chest. The lungs are well expanded. Persistent patchy bilateral airspace opacities, similar to prior. No pleural effusion. No pneumothorax. Prominent bleb formation at the left apex. The cardiomediastinal silhouette is unchanged. XR/XR chest 1V IMPRESSION: Dobbhoff tube terminating in the stomach. If postpyloric positioning is desired, advancement is recommended. Similar appearance of the lungs with bilateral opacities.
[2020-10-09] MEDS: Piperacillin Sodium/Tazobactam 3.375 GM in 0.9 % Sodium Chloride 50 ML IV ×4 (00:27→18:13)
[2020-10-09] MEDS: metroNIDAZOLE/NS 500 MG/100 ML PIGGYBACK 100 MG IV ×3 (03:32→18:13)
[2020-10-09] MEDS: Heparin Sodium,Porcine 5,000 UNIT/ML VIAL 5000 UNIT SUBCUT (03:33)
[2020-10-09] MEDS: Albumin Human 25 % 100 ML IV ×5 (05:26→21:59)
[2020-10-09 05:31] LABS: Hematocrit 24.2 % (42-52); Hemoglobin 7.9 g/dl (14.0-18.0); Mean Corpuscular HGB Conc 32.6 g/dl (31.0-36.0); Mean Corpuscular Hemoglobin 31.3 pg (27.0-33.0); Mean Platelet Volume 11.8 fL (9.4-12.4); NRBC Pct Auto 0.2 /100WBC (0.0-0.2); Red Blood Count 2.52 X10*6/uL (4.60-5.80); Red Cell Distribution Width 16.7 % (11.0-16.0)
[2020-10-09 05:32] LABS: Base Excess VBG -3.7 mmol/L; HCO3 VBG 21 mmol/L; PCO2 VBG 36 mmHg; PO2 VBG 65 mmHg; pH VBG 7.36 (7.32-7.43)
[2020-10-09 05:33] LABS: Platelet Count 31 X10*3/uL (160-400); WBC ABN SCTR FOR CBC 1
[2020-10-09 05:53] LABS: White Blood Count 11.2 X10*3/uL (4.8-10.8)
[2020-10-09 06:01] LABS: Band Neutrophils Percent 9 % (3-5); Lymphocytes Absolute Manual 1.2 X10*3/uL (0.6-4.8); Lymphocytes Percent Manual 11 % (20-40); Metamyelocytes Absolute 0.2 X10*3/uL; Metamyelocytes Percent 2 %; Monocytes Absolute Manual 0.3 X10*3/uL (0.0-1.2); Monocytes Percent Manual 3 % (2-11); Neutrophils Absolute Manual 9.4 X10*3/uL (2.2-7.9); Neutrophils Percent Manual 75 % (45-73); RBC Morphology NORMAL
[2020-10-09 06:02] LABS: Burr Cells 1+; Dohle Bodies PRESENT; Large Platelet PRESENT; Platelet Estimate DECREASED (NORMAL); Platelet Morphology Comment NORMAL; Polychromasia 1+; Toxic Granulation PRESENT; Toxic Vacuolation PRESENT
[2020-10-09 06:03] LABS: Tear Drop Cells 1+
[2020-10-09 06:15] LABS: Alanine Aminotransferase 15 U/L (0-40); Albumin Level 2.8 g/dL (3.5-5.0); Alkaline Phosphatase 38 U/L (39-117); Anion Gap 14 (12-20); Aspartate Amino Transferase 25 U/L (5-37); Bilirubin Total 2.6 mg/dL (0.0-1.0); Blood Urea Nitrogen 5 mg/dL (9-16); Calcium 7.7 mg/dL (8.4-10.2); Carbon Dioxide 20 mmol/L (22-29); Chloride 117 mmol/L (96-108); Creatinine Clr Calc Pharmacy 145.3; Estimated Glomerular Filt Rate > 60; Glucose Random 65 mg/dL (60-115); Magnesium 1.5 mg/dL (1.6-2.6); Phosphorus 2.8 mg/dL (2.7-4.5); Sodium 148 mmol/L (135-145)
[2020-10-09] MEDS: Furosemide 40 MG/4 ML VIAL IVPUSH (08:41)
[2020-10-09] MEDS: Magnesium Sulfate/H2O 2 GM/50 ML PIGGYBACK IV ×2 (08:42→10:21)
[2020-10-09] MEDS: Folic Acid 1 MG TABLET PO (08:47)
[2020-10-09] MEDS: Thiamine HCL 100 MG TABLET PO (08:47)
[2020-10-09] MEDS: Potassium Phosphate 30 MMOL in 0.9 % Sodium Chloride 500 ML 85 MMOL IV (09:06)
[2020-10-09] MEDS: Dextrose 10 % 1,000 ML 30 ML IVCONT (09:51)
--- NOTE | 2020-10-09 15:11 | P.PNGS_ITS ---
Subjective Subjective Date of Service: 10/09/20 Interval history: Hemodynamically improving Regarding much less pressors Denies abdominal pain Still has diarrhea Physical Exam Vital Signs: Vital Signs: Last Vital Signs Temp 97.3 F 10/09/20 13:00 Pulse 108 H 10/09/20 14:00 Resp 16 10/09/20 14:00 BP 92/67 10/09/20 14:00 Pulse Ox 94 10/09/20 14:00 Body Mass Index 19.9 Chemistry 10/07/20 10/07/20 10/08/20 11:50 21:55 05:15 Sodium 133 L 135 141 Potassium 3.4 2.7 L D 3.1 L Carbon Dioxide 25 18 L 16 L BUN 6 L 6 L 6 L Creatinine 0.59 0.53 0.52 Calcium 7.0 L 6.4 L D 6.9 L D Phosphorus 3.6 10/08/20 10/09/20 12:09 05:17 Sodium 144 148 H Potassium 3.7 3.0 L Carbon Dioxide 18 L 20 L BUN 5 L 5 L Creatinine 0.54 0.55 Calcium 7.2 L 7.7 L D Phosphorus 2.8 Hematology 10/07/20 10/07/20 10/08/20 11:50 20:18 05:15 WBC 23.2 H 20.3 H 24.5 H Hgb 9.9 L 7.8 L D 8.1 L Plt Count 93 L 57 L D 65 L 10/09/20 05:17 WBC 11.2 H Hgb 7.9 L Plt Count 31 L D Urinalysis 10/07/20 12:35 Urine Color YELLOW Urine Appearance TURBID Urine pH 7.5 Ur Specific Gravit y 1.015 Urine Protein TRACE Urine Glucose (UA) 100 H Urine Ketones NEG Urine Blood 3+ H Urine Nitrite NEG Ur Leukocyte Ameena ase 3+ H Urine RBC 5-9 H Urine WBC 50-75 H Ur Squamous Epith Cells 3+ Const: Other: Appears short of breath, very frail, has contractures on the right arm Resp: Other: Some shortness of breath Cardio: Rate: tachycardic GI: Other: Right buttock with large deep ulcer, deep, no perirectal induration Palpation (GI): Soft to palpation, not firm and nontender Progress Note: A&P Assessment and plan (1) Abnormal CT of the abdomen: Status: Acute Assessment and Plan: Had extraperitoneal area around the rectal area, perineum Likely from the, large buttock ulcer that has tract into the soft tissue of this rectal fossa No abdominal pain Known exam benign Nurse reports that the deep ulcer stool - uncertain if this is because of his diarrhea with soiling around the area or he has fistulous connection into the rectum Continue wound care with frequent change of position Continue treatment for C diff Patient also has severe UTI, pneumonia, PE No surgical intervention necessary. However if he develops a fistula to the r ectum, may require diversion in view of large buttock ulcer Fall Risk Details Current Medications: Current Medications Generic Name Dose Route Start Last Admin Trade Name Freq PRN Reason Stop Dose Admin Atorvastatin Calcium 40 mg 10/08/20 21:00 10/08/20 21:19 Atorvastatin Calcium 40 Mg Tablet PO Not Given BEDTIME SAMAN Folic Acid 1 mg 10/08/20 09:00 10/09/20 08:47 Folic Acid 1 Mg Tablet PO 1 mg DAILY SAMAN Administration Heparin Sodium (Porcine) 5,000 unit 10/08/20 04:00 10/09/20 12:13 Heparin Sodium,Porcine 5,000 Unit/Ml Vial SUBCUT Not Given Q8H SAMAN Piperacillin Sod/Tazobactam 50 mls @ 100 mls/hr 10/07/20 19:00 10/09/20 12:27 Sod 3.375 gm/ Sodium Chloride IV Infused Q6H SAMAN Infusion Metronidazole 500 mg in 100 mls @ 100 mls/hr 10/07/20 19:00 10/09/20 11:25 Flagyl IV Infused Q8H SAMAN Infusion Norepinephrine Bitartrate 8 mg in 250 mls @ 0 mls/hr 10/07/20 18:15 10/09/20 14:19 Levophed IVCONT 0 mcg/kg/min .Q0M SAMAN 0 mls/hr Titration Protocol Per Protocol Albumin Human 100 mls @ 100 mls/hr 10/09/20 08:15 10/09/20 14:10 Kedbumin 25 % IV 10/10/20 03:14 100 mls/hr Q6H SAMAN Administration Dextrose 1,000 mls @ 30 mls/hr 10/09/20 09:45 10/09/20 09:51 D10 IVCONT 30 mls/hr .Q24H SAMAN Administration Pharmacy Consult 1 each 10/07/20 13:09 Consult Rx Perform Med Rec MISCELLANE ONCE PRN Consult order Thiamine HCl 100 mg 10/08/20 09:00 10/09/20 08:47 Thiamine Hcl 100 Mg Tablet PO 100 mg DAILY SAMAN Administration Time Spent With Patient Time: Total time spent is greater than 50% in coordination of care (as documented) at patient's floor/unit and/or counseling patient: Time with patient: 15 - 24 minutes
--- NOTE | 2020-10-09 16:05 | P.PNCC_ITS ---
Subjective Subjective Date of Service: 10/09/20 Interval History: 59-year-old gentleman with underlying history of CVA with residual right-sided hemiplegia, chronic right femoral DVT, COPD, chronic diarrhea, prior Gram-negative UTI admitted on 10/07/2020 from home where he was cared for by his with complaints of weakness and worsening diarrhea. On ER evaluation patient noted to be in septic shock with multifactorial origin including Proteus bacteremia secondary to UTI, C diff colitis, ischial decubitus ulcer. He CT abdomen was remarkable for pelvic soft tissue gas that was brigido luated by General surgery and deemed to be secondary to air tracking from his decubitus also and not require surgical intervention. His CT angiogram of the chest is also remarkable for segmental pulmonary embolism that appears to be chronic. He has been covered with broad-spectrum antibiotics. Initial vasopressor support was delayed secondary to inability to place central venous access before initial colloidal resuscitation. No events overnight. O2 requirements are fluctuating. Failed bedside speech swallow evaluation. Physical Exam Vital Signs: Vital Signs: Last Vital Signs Temp 97.3 F 10/09/20 15:00 Pulse 105 H 10/09/20 15:00 Resp 17 10/09/20 15:00 BP 102/76 10/09/20 15:00 Pulse Ox 95 10/09/20 15:00 Body Mass Index 19.9 Const: General: no acute distress, alert and awake Eyes: Sclerae: sclerae normal Neck: Neck: Yes no lymphadenopathy, Yes trachea midline and Yes supple Resp: Effort & Inspection: normal respiratory effort and no respiratory distress Auscultation: crackles (Right basilar) Cardio: Rate: tachycardic Rhythm: regular rhythm Heart sounds: no gallops, no murmurs and no rubs GI: Palpation (GI): Soft to palpation and Other GI palpation findings present ( Nontender) Auscultation: normal bowel sounds Extrem: General: No clubbing, No cyanosis and Yes edema (1+ bilateral) Objective Data Labs CBC & Chem 7: 10/09/20 05:17 10/09/20 05:17 Labs: Laboratory Results - last 24 hr 10/09/20 10/09/20 10/09/20 05:17 05:17 05:17 WBC 11.2 H RBC 2.52 L Hgb 7.9 L Hct 24.2 L MCV 96.0 MCH 31.3 MCHC 32.6 RDW 16.7 H Plt Count 31 L D MPV 11.8 Immature Gran % (Auto) Cancelled Neut % (Auto) Cancelled Lymph % (Auto) Cancelled Eos % (Auto) Cancelled Baso % (Auto) Cancelled Lymph # (Auto) Cancelled [place] # (Auto) Cancelled Eos # (Auto) Cancelled Baso # (Auto) Cancelled Abs Immat Gran (auto) Cancelled Absolute Neuts (auto) Cancelled Absolute Nucleated RBC 0.020 H Nucleated RBC % (auto) 0.2 Neutrophils % (Manual) 75 H Band Neutrophils % 9 H Lymphocytes % (Manual) 11 L Monocytes % (Manual) 3 Metamyelocytes % 2 Abs Neuts (Manual) 9.4 H Lymphocytes # (Manual) 1.2 Monocytes # (Manual) 0.3 Metamyelocytes # 0.2 Toxic Granulation PRESENT Toxic Vacuolation PRESENT Dohle Bodies PRESENT Platelet Estimate DECREASED Large Platelets PRESENT Plt Morphology Comment NORMAL RBC Morphology NORMAL Polychromasia 1+ Tear Drop Cells 1+ Cindi Cells 1+ VBG pH 7.36 VBG pCO2 36 VBG pO2 65 VBG HCO3 21 VBG O2 Saturation 88.0 VBG Base Excess -3.7 Sodium 148 H Potassium 3.0 L Chloride 117 H Carbon Dioxide 20 L Anion Gap 14 BUN 5 L Creatinine 0.55 Estim Creat Clear Calc 145.3 Estimated GFR > 60 Random Glucose 65 D Calcium 7.7 L D Phosphorus 2.8 Magnesium 1.5 L Total Bilirubin 2.6 H AST 25 ALT 15 Alkaline Phosphatase 38 L D Total Protein 5.0 L Albumin 2.8 L D Microbiology Microbiology Results: Microbiology 10/07/20 11:49 Blood - Venous Blood Culture - Preliminary Proteus species 10/07/20 00:00 Urine Catheterized - Straight Catheter Urine Culture - Preliminary Gram negative dea 10/07/20 12:07 Blood - Venous Blood Culture - Preliminary Progress Note: A&P Assessment and plan (1) Thrombocytopenia: Status: Acute Assessment and Plan: Assessment: 59-year-old gentleman with underlying history of residual right- sided hemiplegia from a prior CVA admitted with adult failure to thrive, septic shock, Gram-negative bacteremia, UTI, Clostridium difficile colitis. Plan: Neuro: Residual right-sided hemiplegia after remote CVA with right upper extremity contracture. Cardiac: Septic shock, continue to titrate off pressor support as tolerated. Pulmonary: Acute hypoxic respiratory failure secondary to a combination of pulmonary edema from IV fluid resuscitation with low oncotic pressure and micro aspirations. Continue with improving oncotic pressure, gentle diuresis, and pulmonary toilet. Renal: No acute issues. Endo: No acute issues. GI: Diarrhea secondary to C. diff. colitis. Continue IV Flagyl ID: Proteus bacteremia with urinary source. Continue Zosyn until susceptibility is available. Decubitus ulcer - evaluated by surgery and does not require debridement. Heme/Onc: Known chronic right lower extremity DVT. Pulmonary emboli segmental/subsegmental and appear chronic. No anticoagulation at this time secondary to thrombocytopenia. Will reconsider anticoagulation after thrombocytopenia improves. Thrombocytopenia is likely septic shock related. To receive 1 unit of platelets. Psych: No acute issues. Miscellaneous: No acute issues. Prophylaxis: Heparin Diet: Nothing by mouth Critical care time spent: 60 minutes (2) Decubitus ulcer: Status: Acute (3) Pulmonary embolism: Status: Acute (4) Gram-negative bacteremia: Status: Acute (5) DVT (deep venous thrombosis): Status: Acute (6) UTI (urinary tract infection): Status: Acute (7) C. difficile colitis: Status: Acute (8) Septic shock: Status: Acute Time Spent With Patient Total time spent with greater than 50% in coordination of care (as documented) at patient's floor/unit and/or counseling patient:: 0 Critical Care Time Critical Care Time (minutes): 60
--- NOTE | 2020-10-09 16:54 | PC.NURSE ---
Addendum entered by Jen Pickett RN 10/09/20 18:38: Patient pulled KO Feed tube out - MD notified. Addendum entered by Jen Pickett RN 10/09/20 18:19: KO Feed tube placed by MD - CXR confirmed - patient placed on tube feed Promote at 20cc/hr. Lasix 20mg IVP ordered and administered. BP 107/70, HR 107, RR 17, 97% on 8L Oxymizer Original Note: S/E Afebrile; WBC 11.2 UC positive gram neg rods, BC growing proteus species Continue Zosyn, Vanco discontinued Aphasic, responds to name ST 100-120's, PVCs Patent L Fem TLC Plts 31 - Heparin held Plts pending arrival from [facility] 1.5 - 2g IV administered Pot 3.0 - Pot Phos 30mmol administered Albumin 2.8 - continued on Albumin 100cc IV Q6 Levophed titrated off - BP remains stable Continued accessory muscle use LS rhonchi throughout Wet, weak cough Oxygen titrated down to 8L Oxymizer Lasix 40mg IVP administered - 1.5L urine output NPO per speech eval Multiple liquid dark brown BMs Continued on Flagy for positive CDiff Random glucose trending down - today 65 - started on D10 @30cc/hr Multiple skin integrity concerns - see chart documentation/pictures On Sizewise airloss bed Repo q2hr left to right only Dressing changes completed, bathed, barrier cream applied Family updated
[2020-10-09] MEDS: Furosemide 20 MG/2 ML VIAL IVPUSH (18:13)
[2020-10-09] MEDS: Dextrose 5 % 1,000 ML 50 ML IVCONT (20:07)
[2020-10-09 22:10] LABS: Glucose, Whole Blood 107 mg/dL (60-115)
[2020-10-10] VITALS (27 sets, daily range): BP systolic 92–128; BP diastolic 71–98; PULSE 94–127; RESP 11–20; TEMP 35.4–36.3; O2SAT 90–100; BMI 19.5
--- NOTE | 2020-10-10 | CT_ITS ---
EXAMINATION: CT ABDOMEN AND PELVIS WITHOUT CONTRAST CLINICAL INFORMATION: Anemia, thrombocytopenia. COMPARISON: 10/07/2020 TECHNIQUE: Multidetector volumetric imaging was performed from the superior aspect of the liver through the pubic symphysis. Sagittal and coronal reformatted images were obtained on the technologist's workstation. This CT examination was performed using dose optimization techniques as appropriate, variously including the following: *Automated exposure control *Adjustment of mA and/or kV according to patient size (this includes techniques or standardized protocols for targeted exams where dose is matched to indication/reason for exam; i.e. extremities or head) *Use of iterative reconstruction technique DLP: 593 mGy-cm FINDINGS: LUNG BASES: Left lower lobe regional bronchiectasis and mucoid impaction. Bilateral lower lobe subsegmental atelectasis. Small bilateral pleural effusions. Coronary calcifications. LIVER, GALLBLADDER, AND BILIARY TREE: Liver is normal in size and contour. Diffuse hepatic steatosis. Cholelithiasis. No intra or extrahepatic biliary dilatation. PANCREAS: Unremarkable. SPLEEN: Unremarkable. ADRENAL GLANDS: Unremarkable. KIDNEYS AND URETERS: The kidneys are normal in size, shape, and attenuation. No hydronephrosis, hydroureter, or calculi seen. No perinephric stranding. BLADDER: Contains a Capellan catheter. GASTROINTESTINAL TRACT: Persistent, though improved diffuse submucosal edema throughout the colon. Marked submucosal edema within the rectum is unchanged. Stomach and small bowel unremarkable. ABDOMINAL WALL: Anasarca is worse from prior. LYMPH NODES: Normal. VASCULAR: Aorta is atherosclerotic but normal caliber. No retroperitoneal hematoma. PELVIC VISCERA: Prostate unremarkable. Decreased gas present within the ischioanal fossa adjacent to the right ischium. OSSEOUS STRUCTURES: No acute or suspicious osseous abnormalities. CT/CT abdomen pelvis wo con IMPRESSION: * No retroperitoneal hematoma or hemoperitoneum. * Worsening diffuse anasarca with evidence of anemia. * Increased small bilateral pleural effusions. * Diffuse hepatic steatosis. * Persistent though improved diffuse submucosal edema throughout the colon. * Stable submucosal edema within the rectum. * Decreased gas within the ischioanal fossa with small gas remaining adjacent to the right ischium.
[2020-10-10] MEDS: Piperacillin Sodium/Tazobactam 3.375 GM in 0.9 % Sodium Chloride 50 ML IV ×4 (01:45→19:45)
[2020-10-10] MEDS: Albumin Human 25 % 100 ML IV (03:25)
[2020-10-10] MEDS: metroNIDAZOLE/NS 500 MG/100 ML PIGGYBACK 100 MG IV ×3 (04:04→18:15)
[2020-10-10 05:21] LABS: pH VBG 7.39 (7.32-7.43)
[2020-10-10 05:22] LABS: Base Excess VBG 4.4 mmol/L; HCO3 VBG 29 mmol/L; PCO2 VBG 47 mmHg; PO2 VBG 68 mmHg
[2020-10-10 05:26] LABS: NRBC Pct Auto 0.8 /100WBC (0.0-0.2); PLT CLUMP 1; Red Cell Distribution Width 16.6 % (11.0-16.0)
[2020-10-10 05:28] LABS: Hematocrit 21.1 % (42-52); Mean Corpuscular HGB Conc 33.2 g/dl (31.0-36.0); Mean Corpuscular Volume 96.3 fL (80-98); Mean Platelet Volume 12.8 fL (9.4-12.4); Red Blood Count 2.19 X10*6/uL (4.60-5.80)
[2020-10-10 05:36] LABS: WBC ABN SCTR FOR CBC 1
[2020-10-10 05:37] LABS: White Blood Count 8.5 X10*3/uL (4.8-10.8)
[2020-10-10 05:38] LABS: Platelet Count 19 X10*3/uL (160-400)
[2020-10-10 05:43] LABS: Albumin Level 3.4 g/dL (3.5-5.0); Anion Gap 13 (12-20); Blood Urea Nitrogen 4 mg/dL (9-16); Calcium 7.9 mg/dL (8.4-10.2); Carbon Dioxide 25 mmol/L (22-29); Chloride 116 mmol/L (96-108); Creatinine Clr Calc Pharmacy 121.6; Estimated Glomerular Filt Rate > 60; Glucose Random 115 mg/dL (60-115); Magnesium 1.6 mg/dL (1.6-2.6); Phosphorus 2.1 mg/dL (2.7-4.5)
[2020-10-10 05:50] LABS: Potassium 2.2 mmol/L (3.3-5.1); Sodium 152 mmol/L (135-145)
[2020-10-10 06:35] LABS: Band Neutrophils Percent 6 % (3-5); Eosinophils Absolute Manual 0.3 X10*3/UL (0.0-0.8); Eosinophils Percent Manual 3 % (0-4); Lymphocytes Percent Manual 24 % (20-40); Metamyelocytes Absolute 0.1 X10*3/uL; Metamyelocytes Percent 1 %; Monocytes Absolute Manual 0.3 X10*3/uL (0.0-1.2); Monocytes Percent Manual 3 % (2-11); Neutrophils Absolute Manual 5.9 X10*3/uL (2.2-7.9); Neutrophils Percent Manual 63 % (45-73)
[2020-10-10 06:36] LABS: Acanthocytes 1+; Burr Cells 1+; Dohle Bodies PRESENT; Large Platelet PRESENT; Platelet Estimate DECREASED (NORMAL); Platelet Morphology Comment NORMAL; RBC Morphology NORMAL; Target Cells 1+; Tear Drop Cells 1+; Toxic Granulation PRESENT; Toxic Vacuolation PRESENT
[2020-10-10] MEDS: Potassium Chloride/H20 40 MEQ/100 ML PIGGYBACK 100 MEQ IV ×6 (08:05→19:45)
[2020-10-10] MEDS: Magnesium Sulfate/H2O 2 GM/50 ML PIGGYBACK IV (08:06)
[2020-10-10] MEDS: Potassium Phosphate 30 MMOL in 0.9 % Sodium Chloride 500 ML 85 MMOL IV (08:54)
[2020-10-10] MEDS: Furosemide 20 MG/2 ML VIAL 40 MG IVPUSH ×2 (09:46→20:59)
[2020-10-10] MEDS: Dextrose 10 % 1,000 ML 30 ML IVCONT (10:57)
--- NOTE | 2020-10-10 11:04 | PM.CCPN ---
Subjective Subjective Date of Service: 10/10/20 Interval History: 59-year-old gentleman with underlying history of CVA with residual right-sided hemiplegia, chronic right femoral DVT, COPD, chronic diarrhea, prior Gram-negative UTI admitted on 10/07/2020 from home where he was cared for by his with complaints of weakness and worsening diarrhea. On ER evaluation patient noted to be in septic shock with multifactorial origin including Proteus bacteremia secondary to UTI, C diff colitis, ischial decubitus ulcer. He CT abdomen was remarkable for pelvic soft tissue gas that was evaluated by General surgery and deemed to be secondary to air tracking from his decubitus also and not require surgical intervention. His CT angiogram of the chest is also remarkable for segmental pulmonary embolism that appears to be chronic. He has been covered with broad-spectrum antibiotics. Initial vasopressor support was delayed secondary to inability to place central venous access before initial colloidal resuscitation. No events overnight. O2 requirements continue to fluctuate secondary to recurrent aspirations. Patient has pulled out his NG tube. Titrated off pressors. Physical Exam Vital Signs: Vital Signs: Last Vital Signs Temp 96.1 F L 10/10/20 10:35 Pulse 94 10/10/20 10:35 Resp 16 10/10/20 10:35 BP 115/89 10/10/20 10:35 Pulse Ox 97 10/10/20 09:58 Body Mass Index 19.5 Const: General: no acute distress, awake and other (Right-sided contracture) Eyes: Sclerae: sclerae normal EOM: EOMs intact bilaterally Neck: Neck: Yes no lymphadenopathy, Yes trachea midline and Yes supple Resp: Effort & Inspection: normal respiratory effort and no respiratory distress Auscultation: crackles and rales (Diffuse bilateral worse at the right base) Cardio: Rate: regular rate Rhythm: regular rhythm Heart sounds: no gallops, no murmurs and no rubs GI: Palpation (GI): Soft to palpation and Other GI palpation findings present ( Nontender) Auscultation: normal bowel sounds Extrem: General: No clubbing, No cyanosis and Yes edema (1+ bilateral) Objective Data Labs CBC & Chem 7: 10/10/20 05:03 10/10/20 05:03 Labs: Laboratory Results - last 24 hr 10/07/20 10/09/20 10/10/20 21:55 22:07 05:03 WBC 8.5 RBC 2.19 L Hgb 7.0 L* Hct 21.1 L MCV 96.3 MCH 32.0 MCHC 33.2 RDW 16.6 H Plt Count 19 L* MPV 12.8 H Immature Gran % (Auto) Cancelled Neut % (Auto) Cancelled Lymph % (Auto) Cancelled [place] % (Auto) Cancelled Eos % (Auto) Cancelled Baso % (Auto) Cancelled Lymph # (Auto) Cancelled [place] # (Auto) Cancelled Eos # (Auto) Cancelled Baso # (Auto) Cancelled Abs Immat Gran (auto) Cancelled Absolute Neuts (auto) Cancelled Absolute Nucleated RBC 0.070 H Nucleated RBC % (auto) 0.8 H Neutrophils % (Manual) 63 Band Neutrophils % 6 H Lymphocytes % (Manual) 24 Monocytes % (Manual) 3 Eosinophils % (Manual) 3 Metamyelocytes % 1 Abs Neuts (Manual) 5.9 Lymphocytes # (Manual) 2.0 Monocytes # (Manual) 0.3 Eosinophils # (Manual) 0.3 Metamyelocytes # 0.1 Toxic Granulation PRESENT Toxic Vacuolation PRESENT Dohle Bodies PRESENT Platelet Estimate DECREASED Large Platelets PRESENT Plt Morphology Comment NORMAL RBC Morphology NORMAL Target Cells 1+ Tear Drop Cells 1+ [place] Cells 1+ Acanthocytes (Spur) 1+ VBG pH VBG pCO2 VBG pO2 VBG HCO3 VBG O2 Saturation VBG Base Excess Sodium Potassium Chloride Carbon Dioxide Anion Gap BUN Creatinine Estim Creat Clear Calc Estimated GFR POC Glucose 107 Random Glucose Calcium Phosphorus Magnesium Albumin Blood Type A Positive Antibody Screen NEGATIVE Crossmatch See Detail 10/10/20 10/10/20 05:03 05:03 WBC RBC Hgb Hct MCV MCH MCHC RDW Plt Count MPV Immature Gran % (Auto) Neut % (Auto) Lymph % (Auto) [place] % (Auto) Eos % (Auto) Baso % (Auto) Lymph # (Auto) [place] # (Auto) Eos # (Auto) Baso # (Auto) Abs Immat Gran (auto) Absolute Neuts (auto) Absolute Nucleated RBC Nucleated RBC % (auto) Neutrophils % (Manual) Band Neutrophils % Lymphocytes % (Manual) Monocytes % (Manual) Eosinophils % (Manual) Metamyelocytes % Abs Neuts (Manual) Lymphocytes # (Manual) Monocytes # (Manual) Eosinophils # (Manual) Metamyelocytes # Toxic Granulation Toxic Vacuolation Dohle Bodies Platelet Estimate Large Platelets Plt Morphology Comment RBC Morphology Target Cells Tear Drop Cells [place] Cells Acanthocytes (Spur) VBG pH 7.39 VBG pCO2 47 VBG pO2 68 VBG HCO3 29 VBG O2 Saturation 83.0 VBG Base Excess 4.4 Sodium 152 H Potassium 2.2 L* Chloride 116 H Carbon Dioxide 25 Anion Gap 13 BUN 4 L Creatinine 0.59 Estim Creat Clear Calc 121.6 Estimated GFR > 60 POC Glucose Random Glucose 115 D Calcium 7.9 L Phosphorus 2.1 L Magnesium 1.6 Albumin 3.4 L D Blood Type Antibody Screen Crossmatch Microbiology Microbiology Results: Microbiology 10/07/20 00:00 Urine Catheterized - Straight Catheter Urine Culture - Preliminary Klebsiella pneumoniae 10/07/20 12:07 Blood - Venous Blood Culture - Preliminary 10/07/20 11:49 Blood - Venous Blood Culture - Final Proteus mirabilis Progress Note: A&P Assessment and plan (1) Thrombocytopenia: Status: Acute Assessment and Plan: Assessment: 59-year-old gentleman with underlying history of residual right-sided hemiplegia from a prior CVA admitted with adult failure to thrive, septic shock, Gram-negative bacteremia, UTI, Clostridium difficile colitis. Plan: Neuro: Residual right-sided hemiplegia after remote CVA with right upper extremity contracture. Cardiac: Septic shock, resolved. Titrated off pressors. Pulmonary: Acute hypoxic respiratory failure secondary to a combination of pulmonary edema from IV fluid resuscitation with low oncotic pressure and micro aspirations. Continue with improving oncotic pressure, gentle diuresis, and pulmonary toilet. Renal: No acute issues. Endo: No acute issues. GI: Diarrhea secondary to C. diff. colitis. Continue IV Flagyl. Will require PEG placement. ID: Proteus bacteremia and Klebsiella UTI. Continue Zosyn until susceptibility is available. Decubitus ulcer - evaluated by surgery and does not require debridement. Heme/Onc: Known chronic right lower extremity DVT. Pulmonary emboli segmental/subsegmental and appear chronic. No anticoagulation at this time secondary to thrombocytopenia. Will reconsider anticoagulation after thrombocytopenia improves. Thrombocytopenia is likely septic shock related. To receive 1 unit of platelets. Will obtain CT abdomen pelvis to rule out retroperitoneal bleed. Psych: No acute issues. Miscellaneous: No acute issues. Prophylaxis: Heparin Diet: Nothing by mouth Critical care time spent: 60 minutes (2) Decubitus ulcer: Status: Acute (3) Pulmonary embolism: Status: Acute (4) Gram-negative bacteremia: Status: Acute (5) DVT (deep venous thrombosis): Status: Acute (6) C. difficile colitis: Status: Acute (7) UTI (urinary tract infection): Status: Acute Time Spent With Patient Total time spent with greater than 50% in coordination of care (as documented) at patient's floor/unit and/or counseling patient:: 0 Critical Care Time Critical Care Time (minutes): 60
[2020-10-10 15:37] LABS: Anion Gap 13 (12-20); Blood Urea Nitrogen 4 mg/dL (9-16); Calcium 7.9 mg/dL (8.4-10.2); Carbon Dioxide 28 mmol/L (22-29); Chloride 116 mmol/L (96-108); Creatinine Clr Calc Pharmacy 117.6; Estimated Glomerular Filt Rate > 60; Glucose Random 112 mg/dL (60-115); Sodium 155 mmol/L (135-145)
--- NOTE | 2020-10-10 15:41 | MHC.CM.PN ---
Pt remains in ICU with sepsis: Clinical updates sent to SNF facilities in anticipation of pt's eventual d/c. Will continue to follow.
[2020-10-10] MEDS: fentaNYL citrate/PF 100 MCG/2 ML VIAL 50 MCG IVPUSH ×2 (17:27→21:32)
[2020-10-11] VITALS (33 sets, daily range): BP systolic 85–114; BP diastolic 57–87; PULSE 93–143; RESP 14–22; TEMP 36.4–37.6; O2SAT 43–99; BMI 19.5
--- NOTE | 2020-10-11 | XR_ITS ---
EXAMINATION: XR CHEST CLINICAL INFORMATION: Status post endotracheal tube placement. COMPARISON: 10/09/2020 portable chest. TECHNIQUE: Frontal view of the chest was obtained. FINDINGS: Support devices: Interval placement of endotracheal tube with tip terminating approximately 6.8 cm proximal to the murali. A nasogastric tube is seen with tip and side-port overlying of the proximal left stomach in the left upper quadrant. There has been interval increase in bilateral patchy infiltrates with upper lobe predominance, right greater than left. The heart and mediastinal structures are unremarkable. XR/XR chest 1V IMPRESSION: 1. Endotracheal tube tip approximately 6.8 cm proximal to murali. 2. Bilateral patchy infiltrates with upper lobe predominance, right greater than left representing interval increase.
[2020-10-11] MEDS: Piperacillin Sodium/Tazobactam 3.375 GM in 0.9 % Sodium Chloride 50 ML IV ×4 (01:38→19:40)
[2020-10-11] MEDS: metroNIDAZOLE/NS 500 MG/100 ML PIGGYBACK 100 MG IV ×3 (02:25→19:41)
[2020-10-11] MEDS: LORazepam 2 MG/ML VIAL 1 MG IVPUSH (02:25)
[2020-10-11] MEDS: Albumin Human 25 % 100 ML IV (02:25)
[2020-10-11 05:05] LABS: pH VBG 7.39 (7.32-7.43)
[2020-10-11 05:06] LABS: Base Excess VBG 10.7 mmol/L; HCO3 VBG 37 mmol/L; PCO2 VBG 60 mmHg; PO2 VBG 49 mmHg
[2020-10-11 05:11] LABS: Hematocrit 26.7 % (42-52); Hemoglobin 8.6 g/dl (14.0-18.0); Mean Corpuscular HGB Conc 32.2 g/dl (31.0-36.0); Mean Corpuscular Hemoglobin 30.7 pg (27.0-33.0); Mean Corpuscular Volume 95.4 fL (80-98); Mean Platelet Volume 12.4 fL (9.4-12.4); Red Cell Distribution Width 16.8 % (11.0-16.0); White Blood Count 8.7 X10*3/uL (4.8-10.8)
[2020-10-11 05:17] LABS: NRBC Pct Auto 1.4 /100WBC (0.0-0.2); Platelet Count 23 X10*3/uL (160-400)
[2020-10-11 05:44] LABS: Albumin Level 3.1 g/dL (3.5-5.0); Anion Gap 14 (12-20); Blood Urea Nitrogen 4 mg/dL (9-16); Carbon Dioxide 28 mmol/L (22-29); Chloride 119 mmol/L (96-108); Creatinine Clr Calc Pharmacy 119.6; Estimated Glomerular Filt Rate > 60; Glucose Random 114 mg/dL (60-115); Magnesium 1.5 mg/dL (1.6-2.6); Phosphorus 1.9 mg/dL (2.7-4.5); Potassium 3.5 mmol/L (3.3-5.1); Sodium 157 mmol/L (135-145)
[2020-10-11 05:59] LABS: Band Neutrophils Percent 4 % (3-5); Eosinophils Absolute Manual 0.1 X10*3/UL (0.0-0.8); Eosinophils Percent Manual 1 % (0-4); Lymphocytes Absolute Manual 2.5 X10*3/uL (0.6-4.8); Lymphocytes Percent Manual 29 % (20-40); Monocytes Absolute Manual 0.3 X10*3/uL (0.0-1.2); Monocytes Percent Manual 4 % (2-11); Neutrophils Absolute Manual 5.7 X10*3/uL (2.2-7.9); Neutrophils Percent Manual 62 % (45-73); Nucleated Red Blood Cells 4 /100WBC (0-0)
[2020-10-11 06:01] LABS: Acanthocytes 1+; RBC Morphology NORMAL
[2020-10-11 06:02] LABS: Burr Cells 1+; Target Cells 1+; Tear Drop Cells 1+; Toxic Granulation PRESENT; Toxic Vacuolation PRESENT
[2020-10-11 06:04] LABS: Large Platelet PRESENT; Platelet Estimate DECREASED (NORMAL); Platelet Morphology Comment NORMAL
[2020-10-11] MEDS: Metoprolol Tartrate 5 MG/5 ML VIAL 2.5 MG IVPUSH (06:14)
--- NOTE | 2020-10-11 06:15 | PC.NURSE ---
PT APHASIC, GARBLED, MENTATION DIFFICULT TO ASSESS. PULLING OFF OXYGEN, AND MOANING. PRN FENTANYL GIVEN X1 WITH MINIMAL EFFECT. 1 MG IVP ATIVAN GIVEN WITH GOOD EFFECT, SLEPT MOST OF NIGHT THEREAFTER. S/P MEDS, SBP 70-90s. IV ALBUMIN X1 GIVEN. NSR/ST, HR 80-160s, FREQUENT ECTOPY, BBB. 2.5 IVP LOPRESSOR GIVEN X1 WITH SOME EFFECT AT 0600. LS RHONCHOROUS THROUGHOUT. ATTEMPTED DEEP SUCTION ORALLY AND NASALLY X1 WITH MINIMAL EFFECT. OXYGEN TITRATED TO COMFORT NASAL CANNULA, CURRENTLY ON 8L. MOUTH CARE GIVEN. MULTIPLE SKIN TEARS NOTED, FOAM DSG APPLIED. SKIN FRAGILE. BRUISING THROUGHOUT. PT INCT OF GREEN LIQUID STOOL. R ISCHIAL DSG SOILED, NEW WET TO DRY DSG DONE. COCCYX COVERED WITH FOAM DSG FOR PROTECTION. PERINEUM WITH LARGE BLOODY/BLACK BLISTER, INTACT AT THIS TIME. +3/4 GENERALIZED WEEPING ANASARCA. [place] IN PLACE, UOP APPROX 100 ML. REPOSITIONED Q2H. ON AIR LOSS BED. UPDATED BY RN AND INTERNATIONAL MANAGER.
[2020-10-11] MEDS: Calcium Gluconate/NaCl,Iso-Osm 2 GM/100 ML PLAST..BAG IV (08:08)
[2020-10-11] MEDS: Furosemide 20 MG/2 ML VIAL IVPUSH ×2 (08:08→22:10)
[2020-10-11] MEDS: Potassium Chloride/H20 40 MEQ/100 ML PIGGYBACK 100 MEQ IV (08:09)
[2020-10-11] MEDS: Potassium Phosphate 30 MMOL in 0.9 % Sodium Chloride 500 ML 85 MMOL IV (09:30)
[2020-10-11] MEDS: Magnesium Sulfate/H2O 2 GM/50 ML PIGGYBACK IV ×2 (10:06→12:12)
--- NOTE | 2020-10-11 11:05 | PM.CCPN ---
Subjective Subjective Date of Service: 10/11/20 Interval History: ICU day 4 for septic shock with Proteus bacteremia, Klebsiella UTI, C diff colitis, hypoxic respiratory failure. 59-year-old gentleman with underlying history of CVA with residual right-sided hemiplegia, chronic right femoral DVT, COPD, chronic diarrhea, prior Gram-negative UTI admitted on 10/07/2020 from home where he was cared for by his with complaints of weakness and worsening diarrhea. On ER evaluation patient noted to be in septic shock with multifactorial origin including Proteus bacteremia secondary to UTI, C diff colitis, ischial decubitus ulcer. He CT abdomen was remarkable for pelvic soft tissue gas that was evaluated by General surgery and deemed to be secondary to air tracking from his decubitus also and not require surgical intervention. His CT angiogram of the chest is also remarkable for segmental pulmonary embolism that appears to be chronic. He has been covered with broad-spectrum antibiotics. Initial vasopressor support was delayed secondary to inability to place central venous access before initial colloidal resuscitation. No events overnight. Physical Exam Vital Signs: Vital Signs: Last Vital Signs Temp 98.2 F 10/11/20 10:00 Pulse 111 H 10/11/20 10:00 Resp 18 10/11/20 10:00 BP 103/82 10/11/20 10:00 Pulse Ox 91 L 10/11/20 10:00 Body Mass Index 19.5 Const: General: no acute distress and lethargic (Arousable) Orientation/consciousness: lethargic (Arousable) Eyes: Sclerae: sclerae normal Neck: Neck: Yes no lymphadenopathy, Yes trachea midline and Yes supple Resp: Effort & Inspection: normal respiratory effort and no respiratory distress Auscultation: rales (Bibasilar) Cardio: Rate: tachycardic Rhythm: regular rhythm Heart sounds: no gallops, no murmurs and no rubs GI: Palpation (GI): Soft to palpation and Other GI palpation findings present ( Nontender) Auscultation: normal bowel sounds Extrem: General: No clubbing, No cyanosis, Yes edema (1+ bilateral) and Yes other (Right upper extremity contracture) Objective Data Labs CBC & Chem 7: 10/11/20 04:50 10/11/20 04:50 Labs: Laboratory Results - last 24 hr 10/07/20 10/10/20 10/11/20 21:55 14:40 04:50 WBC 8.7 RBC 2.80 L D Hgb 8.6 L D Hct 26.7 L D MCV 95.4 MCH 30.7 MCHC 32.2 RDW 16.8 H Plt Count 23 L MPV 12.4 Immature Gran % (Auto) Cancelled Neut % (Auto) Cancelled Lymph % (Auto) Cancelled [place] % (Auto) Cancelled Eos % (Auto) Cancelled Baso % (Auto) Cancelled Lymph # (Auto) Cancelled [place] # (Auto) Cancelled Eos # (Auto) Cancelled Baso # (Auto) Cancelled Abs Immat Gran (auto) Cancelled Absolute Neuts (auto) Cancelled Absolute Nucleated RBC 0.120 H Nucleated RBC % (auto) 1.4 H Neutrophils % (Manual) 62 Band Neutrophils % 4 Lymphocytes % (Manual) 29 Monocytes % (Manual) 4 Eosinophils % (Manual) 1 Abs Neuts (Manual) 5.7 Lymphocytes # (Manual) 2.5 Monocytes # (Manual) 0.3 Eosinophils # (Manual) 0.1 Nucleated RBCs 4 H Toxic Granulation PRESENT Toxic Vacuolation PRESENT Platelet Estimate DECREASED Large Platelets PRESENT Plt Morphology Comment NORMAL RBC Morphology NORMAL Target Cells 1+ Tear Drop Cells 1+ Cindi Cells 1+ Acanthocytes (Spur) 1+ VBG pH VBG pCO2 VBG pO2 VBG HCO3 VBG O2 Saturation VBG Base Excess Sodium 155 H Potassium 3.0 L D Chloride 116 H Carbon Dioxide 28 Anion Gap 13 BUN 4 L Creatinine 0.60 Estim Creat Clear Calc 117.6 Estimated GFR > 60 Random Glucose 112 Calcium 7.9 L Phosphorus Magnesium Albumin Crossmatch See Detail 10/11/20 10/11/20 04:50 04:50 WBC RBC Hgb Hct MCV MCH MCHC RDW Plt Count MPV Immature Gran % (Auto) Neut % (Auto) Lymph % (Auto) [place] % (Auto) Eos % (Auto) Baso % (Auto) Lymph # (Auto) [place] # (Auto) Eos # (Auto) Baso # (Auto) Abs Immat Gran (auto) Absolute Neuts (auto) Absolute Nucleated RBC Nucleated RBC % (auto) Neutrophils % (Manual) Band Neutrophils % Lymphocytes % (Manual) Monocytes % (Manual) Eosinophils % (Manual) Abs Neuts (Manual) Lymphocytes # (Manual) Monocytes # (Manual) Eosinophils # (Manual) Nucleated RBCs Toxic Granulation Toxic Vacuolation Platelet Estimate Large Platelets Plt Morphology Comment RBC Morphology Target Cells Tear Drop Cells Cindi Cells Acanthocytes (Spur) VBG pH 7.39 VBG pCO2 60 VBG pO2 49 VBG HCO3 37 VBG O2 Saturation 65.0 VBG Base Excess 10.7 Sodium 157 H Potassium 3.5 Chloride 119 H Carbon Dioxide 28 Anion Gap 14 BUN 4 L Creatinine 0.59 Estim Creat Clear Calc 119.6 Estimated GFR > 60 Random Glucose 114 Calcium 8.0 L Phosphorus 1.9 L Magnesium 1.5 L Albumin 3.1 L Crossmatch Microbiology Microbiology Results: Microbiology 10/07/20 00:00 Urine Catheterized - Straight Catheter Urine Culture - Preliminary Klebsiella pneumoniae 10/07/20 12:07 Blood - Venous Blood Culture - Preliminary 10/07/20 11:49 Blood - Venous Blood Culture - Final Proteus mirabilis Progress Note: A&P Assessment and plan (1) Thrombocytopenia: Status: Acute Assessment and Plan: Assessment: 59-year-old gentleman with underlying history of residual right-sided hemiplegia from a prior CVA admitted with adult failure to thrive, septic shock, Gram-negative bacteremia, UTI, Clostridium difficile colitis. Plan: Neuro: Residual right-sided hemiplegia after remote CVA with right upper extremity contracture. Cardiac: Septic shock, resolved. Titrated off pressors. Pulmonary: Acute hypoxic respiratory failure secondary to a combination of pulmonary edema from IV fluid resuscitation with low oncotic pressure and micro aspirations. Continue with improving oncotic pressure, gentle diuresis, and pulmonary toilet. Renal: No acute issues. Endo: No acute issues. GI: Diarrhea secondary to C. diff. colitis. Continue IV Flagyl. Will require PEG placement. ID: Proteus bacteremia and Klebsiella UTI. Continue Zosyn until susceptibility is available. Decubitus ulcer - evaluated by surgery and does not require debridement. Heme/Onc: Known chronic right lower extremity DVT. Pulmonary emboli segmental/subsegmental and appear chronic. No anticoagulation at this time secondary to thrombocytopenia which is likely sepsis related. CT abdomen/pelvis with no retroperitoneal hemorrhage. Miscellaneous: No acute issues. Prophylaxis: Heparin Diet: Nothing by mouth Critical care time spent: 60 minutes (2) Gram-negative bacteremia: Status: Acute (3) DVT (deep venous thrombosis): Status: Acute (4) UTI (urinary tract infection): Status: Acute (5) C. difficile colitis: Status: Acute Time Spent With Patient Total time spent with greater than 50% in coordination of care (as documented) at patient's floor/unit and/or counseling patient:: 0 Critical Care Time Critical Care Time (minutes): 60
--- NOTE | 2020-10-11 14:39 | W.PM.CCHP ---
Procedures Bronchoscopy Consent for Procedure: Emergent-no informed consent obtained Indication: pulmonary toilet Procedure: Emergent bedside bronchoscopy performed for acute hypoxic respiratory failure and aspirations through the nose with bronchoscope advanced through tracheobronchial tree with visualization of copious bloody secretions that were suctioned. Underlying mucosa normal. Route: nasal Monitor: EKG and pulse oximetry Complications: none
--- NOTE | 2020-10-11 14:41 | W.PM.CCHP ---
Procedures Intubation Intubation Comments: Patient with recurrent aspiration despite secretion clearance by bedside bronchoscopy. Patient in do not intubate code status. Patient's /healthcare proxy contacted and clinical situation explained to her. Patient's agreed with patient to be intubated for airway protection secondary to recurrent aspirations. Patient intubated with 7.5 cuffed ET tube under glide scope guidance with no immediate complications. Chest x-ray for ET tube placement is pending. Consent for Procedure: Elective - informed consent obtained
[2020-10-11] MEDS: dexmedeTOMIDidine HCL/NS 400 MCG/100 ML INFUS..BTL 6.2 MCG IVCONT (14:44)
--- NOTE | 2020-10-11 15:00 | PC.NURSE ---
Addendum entered by Shaniqua Randle RN 10/11/20 19:02: D10 fluids to be DC per MD. Addendum entered by Shaniqua Randle RN 10/11/20 18:34: Unit of platelets ordered and transfused. Tube feed of Promote at 20 ml/hr started at 1730. Original Note: Patient desatting into the mid 70s on 15 L via HFNC with a RR around 30. Patient deep suctioned without good effect. Notified MD. Placed on HFNC at 100% Fi02 per MD. 02 sat in the low 80s. Deep suction and bedside bronchoscope performed by MD and RT at bedside with moderate effect. 02 sats improved to the high 80s. Mucous plus and blood tinged secretions removed. High aspiration risk. Patient changed to full code including intubation per telephone conversation with MD and patient's , Zita, witnessed by this RN. Patient requiring intubation. ET tube 7.5 25 at the lip. OG tube placed. Placement confirmed on xray. On AC settings, rate 18, VC 500 Peep 5, Fio2 80 % with 02 sats trending in the mid 90s. Sedated with Precedex. BP as low as 74/51. Placed on Norepinephrine. BP improved to 101/58.
[2020-10-11 15:23] LABS: Anion Gap 13 (12-20); Blood Urea Nitrogen 4 mg/dL (9-16); Carbon Dioxide 32 mmol/L (22-29); Chloride 118 mmol/L (96-108); Creatinine Clr Calc Pharmacy 128.3; Estimated Glomerular Filt Rate > 60; Glucose Random 104 mg/dL (60-115); Sodium 159 mmol/L (135-145)
[2020-10-11] MEDS: Dextrose 10 % 1,000 ML 30 ML IVCONT (17:19)
[2020-10-11] MEDS: Chlorhexidine Gluc Oral Rinse 15 ML MOUTHWASH BUCCAL (22:10)
[2020-10-11] MEDS: Atorvastatin Calcium 40 MG TABLET PO (22:10)
[2020-10-12] VITALS (21 sets, daily range): BP systolic 90–113; BP diastolic 65–85; PULSE 104–156; RESP 16–27; TEMP 37.9–39.5; O2SAT 90–100; BMI 19.9
[2020-10-12] MEDS: Piperacillin Sodium/Tazobactam 3.375 GM in 0.9 % Sodium Chloride 50 ML IV ×2 (00:29→07:01)
[2020-10-12] MEDS: Dextrose 5 % 1,000 ML 50 ML IVCONT (00:57)
[2020-10-12 01:09] LABS: Glucose, Whole Blood 73 mg/dL (60-115)
[2020-10-12] MEDS: dexmedeTOMIDidine HCL/NS 400 MCG/100 ML INFUS..BTL 6.2 MCG IVCONT (01:54)
[2020-10-12] MEDS: Acetaminophen Supp 650 MG SUPP.RECT PR (02:58)
[2020-10-12] MEDS: metroNIDAZOLE/NS 500 MG/100 ML PIGGYBACK 100 MG IV ×2 (02:59→10:36)
[2020-10-12 05:58] LABS: Base Excess VBG 11.1 mmol/L; HCO3 VBG 37 mmol/L; PCO2 VBG 57 mmHg; PO2 VBG 65 mmHg; pH VBG 7.41 (7.32-7.43)
[2020-10-12 05:59] LABS: PLT CLUMP 1
[2020-10-12 06:01] LABS: Hematocrit 29.6 % (42-52); Hemoglobin 9.6 g/dl (14.0-18.0); Mean Corpuscular HGB Conc 32.4 g/dl (31.0-36.0); Mean Corpuscular Hemoglobin 31.2 pg (27.0-33.0); Mean Corpuscular Volume 96.1 fL (80-98); NRBC Pct Auto 3.7 /100WBC (0.0-0.2); Platelet Count 31 X10*3/uL (160-400); Red Blood Count 3.08 X10*6/uL (4.60-5.80); Red Cell Distribution Width 17.7 % (11.0-16.0); White Blood Count 10.1 X10*3/uL (4.8-10.8)
[2020-10-12 06:27] LABS: Albumin Level 2.6 g/dL (3.5-5.0); Anion Gap 10 (12-20); Blood Urea Nitrogen 6 mg/dL (9-16); Calcium 7.7 mg/dL (8.4-10.2); Carbon Dioxide 34 mmol/L (22-29); Chloride 116 mmol/L (96-108); Creatinine Clr Calc Pharmacy 123.8; Estimated Glomerular Filt Rate > 60; Glucose Random 95 mg/dL (60-115); Magnesium 1.9 mg/dL (1.6-2.6); Potassium 3.9 mmol/L (3.3-5.1); Sodium 156 mmol/L (135-145)
[2020-10-12 06:33] LABS: Atypical Lymph Absolute Manual 0.1 x10*3/uL; Atypical Lymphs Percent Manual 1 % (0-6); Band Neutrophils Percent 7 % (3-5); Eosinophils Absolute Manual 0.1 X10*3/UL (0.0-0.8); Eosinophils Percent Manual 1 % (0-4); Lymphocytes Absolute Manual 2.2 X10*3/uL (0.6-4.8); Lymphocytes Percent Manual 22 % (20-40); Monocytes Absolute Manual 0.2 X10*3/uL (0.0-1.2); Monocytes Percent Manual 2 % (2-11); Neutrophils Absolute Manual 7.5 X10*3/uL (2.2-7.9); Neutrophils Percent Manual 67 % (45-73); Nucleated Red Blood Cells 5 /100WBC (0-0)
[2020-10-12 06:35] LABS: RBC Morphology NOTED
[2020-10-12 06:36] LABS: Acanthocytes 1+; Burr Cells 1+; Dohle Bodies PRESENT; Large Platelet PRESENT; Platelet Estimate DECREASED (NORMAL); Platelet Morphology Comment NORMAL; Target Cells 1+; Toxic Granulation PRESENT; Toxic Vacuolation PRESENT
[2020-10-12] MEDS: fentaNYL citrate/PF 100 MCG/2 ML VIAL 50 MCG IVPUSH (07:22)
[2020-10-12] MEDS: Famotidine/PF 20 MG/2 ML VIAL IVPUSH (08:58)
[2020-10-12] MEDS: Folic Acid 1 MG TABLET PO (08:58)
[2020-10-12] MEDS: Chlorhexidine Gluc Oral Rinse 15 ML MOUTHWASH BUCCAL (08:58)
[2020-10-12] MEDS: Furosemide 20 MG/2 ML VIAL IVPUSH (08:58)
[2020-10-12] MEDS: Thiamine HCL 100 MG TABLET PO (08:58)
[2020-10-12] MEDS: Metoprolol Tartrate 5 MG/5 ML VIAL 2.5 MG IVPUSH (10:30)
--- NOTE | 2020-10-12 11:26 | P.PNCC_ITS ---
Subjective Subjective Date of Service: 10/12/20 Interval History: Mr. Oneal was admitted to the ICU on October 07 with septic shock. The patient is a 59-year-old gentleman with underlying history of CVA from 2018 with residual right-sided hemiplegia, chronic right femoral DVT, COPD, chronic diarrhea, and prior Gram-negative UTI. The patient has been living with his and over the last month has had progressive failure to thrive, inability to take care of his chronic wounds, and inadequate po intake. The patient was brought to the ED on 10/07/2020 with complaints of weakness and worsening diarrhea. On ER evaluation patient noted to be in septic shock with multifactorial origin that proved to include Proteus bacteremia secondary to UTI, C diff colitis, and ischial decubitus ulcer. CT abdomen showed pelvic soft tissue gas that was evaluated by General surgery and deemed to be secondary to air tracking from his decubitus and not requiring surgical intervention. CT pu lmon angiogram was remarkable for segmental pulmonary embolism that appeared to be chronic. He was admitted to ICU and treated with broad-spectrum antibiotics and vasopressors. He was hypoxemic secondary to a combination of pulmonary edema from IV fluid resuscitation with low oncotic pressure and micro aspirations. He was gently diuresed and his resp status was managed with various levels of suppl oxygen support and pulmonary toilet. His oxygenation fluctuated bec of micro aspirations. Yesterday the patient had a major aspiration and required bronchoscopy to clear secretions, but ultimately had to be intubated for acute hypoxic respiratory failure 2? recurrent aspiration. This morning the patient is obtunded on a low dose Precedex infusion. See Vital Signs below. He?s on high dose Levophed at 0.3 ug. He?s Febrile to 102.6. Sat is 93% on 40% FiO2 on the ventilator. He looks jaundiced. No JVD. Few light rhonchi. No M or G. Abdomen is benign. Perineum has a 1.5 x 3? area of greyish skin. Not involving the scrotum. Has a deep pressure ulcer of the right buttock. No cellulitis or spreading infection. (No Ezequiel?s.) Has what looks like about a 1cm fistula opening just to the right of the anal verge. The nurses report stool exiting from this opening. Contracted RUE. LABORATORY DATA: See below. Notably, plat count up to 31 (has been transfused 3 u platelets so far). Na down to 156 on D5W infusion. Alb 2.6. IMPRESSION: Most unfortunate previously very active 59-year-old gentleman with: 1. Underlying devastating left CVA with residual right-sided hemiplegia 2 years ago, now suffering the sequelae. 2. Failure to thrive 3. Decubitus ulcer. I discussed at length with Dr. Abraham as today. No need for debridement yet. Might very well need a diverting colostomy at some point. 4. Gram-negative bacteremia, with septic shock. Continuing Zosyn. 5. Clostridium difficile colitis. On IV Flagyl. 6. Klebsiella UTI. Continuing Zosyn. 7. Chronic right lower extremity DVT and pulmonary emboli. No anticoagulation at this time b/o thrombocytopenia, likely 2? overwhelming sepsis. Discussed at length with Dr. Welsh. Survival is dubious, and if he did, would require tracheostomy and PEG. Furthermore, would likely require a diverting colostomy. He is facing a very arduous and burdensome course. I called the patient?s and spoke with her at length about all the above. I noted to her that at this point, she needed to think about what he would want for himself. She told me that she and her had previously discussed such end-of-life issues at great length, and neither he nor she would want to engage in the course described. She was very clear about that. Furthermore, she said it would hurt her greatly to watch him suffer through that. I told her that we would fully support her decision to withdraw critical care management and let him in peace. She came to see him later this afternoon with her son and I spoke with them at the bedside. 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 I assured them that there was really no decision that they were making, the decision was made by virtue of his condition, and the outcome was likely to be the same regardless of anything any of us did. The family said their goodbye. A while later the patient was extubated and the vasopressors were discontinued. The patient became apneic about an hour later and then asystolic at 1612. Critical care time (including extended chart rev and hosp course summary): 110+ min. Physical Exam Vital Signs: Vital Signs: Last Vital Signs Temp 102.6 F H 10/12/20 11:00 Pulse 104 H 10/12/20 11:00 Resp 22 H 10/12/20 11:00 BP 91/70 10/12/20 11:00 Pulse Ox 94 10/12/20 11:00 Body Mass Index 19.9 Objective Data Labs CBC & Chem 7: 10/12/20 05:43 10/12/20 05:43 Labs: Laboratory Results - last 24 hr 10/11/20 10/11/20 10/12/20 14:29 14:29 00:28 WBC RBC Hgb Hct MCV MCH MCHC RDW Plt Count MPV Immature Gran % (Auto) Neut % (Auto) Lymph % (Auto) [place] % (Auto) Eos % (Auto) Baso % (Auto) Lymph # (Auto) [place] # (Auto) Eos # (Auto) Baso # (Auto) Abs Immat Gran (auto) Absolute Neuts (auto) Absolute Nucleated RBC Nucleated RBC % (auto) Neutrophils % (Manual) Band Neutrophils % Lymphocytes % (Manual) Atypical Lymphs % (Man) Monocytes % (Manual) Eosinophils % (Manual) Abs Neuts (Manual) Lymphocytes # (Manual) Atyp Lymphs # (Manual) Monocytes # (Manual) Eosinophils # (Manual) Nucleated RBCs Toxic Granulation Toxic Vacuolation Dohle Bodies Platelet Estimate Large Platelets Plt Morphology Comment RBC Morphology Target Cells Cindi Cells Acanthocytes (Spur) VBG pH VBG pCO2 VBG pO2 VBG HCO3 VBG O2 Saturation VBG Base Excess Sodium 159 H Potassium 4.0 Chloride 118 H Carbon Dioxide 32 H Anion Gap 13 BUN 4 L Creatinine 0.55 Estim Creat Clear Calc 128.3 Estimated GFR > 60 POC Glucose 73 Random Glucose 104 Calcium 8.0 L Phosphorus Magnesium Albumin Blood Type A Positive Antibody Screen NEGATIVE 10/12/20 10/12/20 10/12/20 05:43 05:43 05:43 WBC 10.1 RBC 3.08 L Hgb 9.6 L Hct 29.6 L MCV 96.1 MCH 31.2 MCHC 32.4 RDW 17.7 H Plt Count 31 L D MPV 12.0 Immature Gran % (Auto) Cancelled Neut % (Auto) Cancelled Lymph % (Auto) Cancelled [place] % (Auto) Cancelled Eos % (Auto) Cancelled Baso % (Auto) Cancelled Lymph # (Auto) Cancelled [place] # (Auto) Cancelled Eos # (Auto) Cancelled Baso # (Auto) Cancelled Abs Immat Gran (auto) Cancelled Absolute Neuts (auto) Cancelled Absolute Nucleated RBC 0.370 H Nucleated RBC % (auto) 3.7 H Neutrophils % (Manual) 67 Band Neutrophils % 7 H Lymphocytes % (Manual) 22 Atypical Lymphs % (Man) 1 Monocytes % (Manual) 2 Eosinophils % (Manual) 1 Abs Neuts (Manual) 7.5 Lymphocytes # (Manual) 2.2 Atyp Lymphs # (Manual) 0.1 Monocytes # (Manual) 0.2 Eosinophils # (Manual) 0.1 Nucleated RBCs 5 H Toxic Granulation PRESENT Toxic Vacuolation PRESENT Dohle Bodies PRESENT Platelet Estimate DECREASED Large Platelets PRESENT Plt Morphology Comment NORMAL RBC Morphology NOTED Target Cells 1+ Chromo Cells 1+ Acanthocytes (Spur) 1+ VBG pH 7.41 VBG pCO2 57 VBG pO2 65 VBG HCO3 37 VBG O2 Saturation 72.0 VBG Base Excess 11.1 Sodium 156 H Potassium 3.9 Chloride 116 H Carbon Dioxide 34 H Anion Gap 10 L BUN 6 L Creatinine 0.57 Estim Creat Clear Calc 123.8 Estimated GFR > 60 POC Glucose Random Glucose 95 Calcium 7.7 L Phosphorus 3.0 Magnesium 1.9 Albumin 2.6 L Blood Type Antibody Screen Microbiology Microbiology Results: Microbiology 10/07/20 00:00 Urine Catheterized - Straight Catheter Urine Culture - Preliminary Klebsiella pneumoniae 10/07/20 12:07 Blood - Venous Blood Culture - Preliminary 10/07/20 11:49 Blood - Venous Blood Culture - Final Proteus mirabilis Progress Note: A&P Time Spent With Patient Time: Total time spent is greater than 50% in coordination of care (as docume nted) at patient's floor/unit and/or counseling patient: Total time spent with greater than 50% in coordination of care (as documented) at patient's floor/unit and/or counseling patient:: 0 Critical Care Time Critical Care Time (minutes): 120
--- NOTE | 2020-10-12 11:28 | MHC.CM.PN ---
Patient remains in ICU. Intubated 10/11. Physical therapy eval for home safety will be needed when medically stablle. Referral has already been broadcasted in [facility]. Clinical updates sent. Continue to monitor for d/c needs.
--- NOTE | 2020-10-12 12:22 | PM.PNGS ---
Subjective Subjective Date of Service: 10/12/20 Interval history: Intubated yesterday because of recurrent pneumonia with aspiration Still on pressors Remains on the ventilator Physical Exam Vital Signs: Vital Signs: Last Vital Signs Temp 102.2 F H 10/12/20 12:00 Pulse 109 H 10/12/20 12:00 Resp 21 H 10/12/20 12:00 BP 90/73 10/12/20 12:00 Pulse Ox 92 10/12/20 12:00 Body Mass Index 19.9 Laboratory Results WBC 10.1 X10*3/uL (4. 8-10.8) 10/12/20 05:43 RBC 3.08 X10*6/uL (4. 60-5.80) L 10/12/20 05:43 Hgb 9.6 g/dl (14.0-18 .0) L 10/12/20 05:43 Hct 29.6 % (42-52) L 10/12/20 05:43 MCV 96.1 fL (80-98) 10/12/20 05:43 MCH 31.2 pg (27.0-33. 0) 10/12/20 05:43 MCHC 32.4 g/dl (31.0-3 6.0) 10/12/20 05:43 RDW 17.7 % (11.0-16.0 ) H 10/12/20 05:43 Plt Count 31 X10*3/uL (160- 400) L D 10/12/20 05:43 MPV 12.0 fL (9.4-12.4 ) 10/12/20 05:43 Immature Gran % (A uto) Cancelled 10/12/20 05:43 Neut % (Auto) Cancelled 10/12/20 05:43 Lymph % (Auto) Cancelled 10/12/20 05:43 [place] % (Auto) Cancelled 10/12/20 05:43 Eos % (Auto) Cancelled 10/12/20 05:43 Baso % (Auto) Cancelled 10/12/20 05:43 Lymph # (Auto) Cancelled 10/12/20 05:43 [place] # (Auto) Cancelled 10/12/20 05:43 Eos # (Auto) Cancelled 10/12/20 05:43 Baso # (Auto) Cancelled 10/12/20 05:43 Abs Immat Gran (au to) Cancelled 10/12/20 05:43 Absolute Neuts (au to) Cancelled 10/12/20 05:43 Absolute Nucleated RBC 0.370 X10*3/uL (0 .0-0.012) H 10/12/20 05:43 Nucleated RBC % (a uto) 3.7 /100WBC (0.0- 0.2) H 10/12/20 05:43 Neutrophils % (Man ual) 67 % (45-73) 10/12/20 05:43 Band Neutrophils % 7 % (3-5) H 10/12/20 05:43 Lymphocytes % (Man ual) 22 % (20-40) 10/12/20 05:43 Atypical Lymphs % (Man) 1 % (0-6) 10/12/20 05:43 Monocytes % (Manua l) 2 % (2-11) 10/12/20 05:43 Eosinophils % (Man ual) 1 % (0-4) 10/12/20 05:43 Metamyelocytes % 1 % 10/10/20 05:03 Abs Neuts (Manual) 7.5 X10*3/uL (2.2 -7.9) 10/12/20 05:43 Lymphocytes # (Man ual) 2.2 X10*3/uL (0.6 -4.8) 10/12/20 05:43 Atyp Lymphs # (Man ual) 0.1 x10*3/uL 10/12/20 05:43 Monocytes # (Manua l) 0.2 X10*3/uL (0.0 -1.2) 10/12/20 05:43 Eosinophils # (Man ual) 0.1 X10*3/UL (0.0 -0.8) 10/12/20 05:43 Metamyelocytes # 0.1 X10*3/uL 10/10/20 05:03 Nucleated RBCs 5 /100WBC (0-0) H 10/12/20 05:43 Toxic Granulation PRESENT 10/12/20 05:43 Toxic Vacuolation PRESENT 10/12/20 05:43 Dohle Bodies PRESENT 10/12/20 05:43 Platelet Estimate DECREASED (CHELLY L) 10/12/20 05:43 Large Platelets PRESENT 10/12/20 05:43 Plt Morphology Com ment NORMAL 10/12/20 05:43 RBC Morphology NOTED 10/12/20 05:43 Polychromasia 1+ 10/09/20 05:17 Microcytosis 1+ 10/07/20 20:18 Macrocytosis 1+ 10/08/20 05:15 Target Cells 1+ 10/12/20 05:43 Tear Drop Cells 1+ 10/11/20 04:50 Ovalocytes 1+ 10/08/20 05:15 [place] Cells 1+ 10/12/20 05:43 Acanthocytes (Spur ) 1+ 10/12/20 05:43 Schistocytes 1+ 10/08/20 05:15 PT 20.3 SEC (10.8-13 .0) H 10/08/20 05:15 INR 1.7 (0.9-1.1) H 10/08/20 05:15 Hold Blue Top SEE NOTE 10/07/20 12:07 VBG pH 7.41 (7.32-7.43) 10/12/20 05:43 VBG pCO2 57 mmHg 10/12/20 05:43 VBG pO2 65 mmHg 10/12/20 05:43 VBG HCO3 37 mmol/L 10/12/20 05:43 VBG O2 Saturation 72.0 % 10/12/20 05:43 VBG Base Excess 11.1 mmol/L 10/12/20 05:43 Sodium 156 mmol/L (135-1 45) H 10/12/20 05:43 Potassium 3.9 mmol/L (3.3-5 .1) 10/12/20 05:43 Chloride 116 mmol/L (96-10 8) H 10/12/20 05:43 Carbon Dioxide 34 mmol/L (22-29) H 10/12/20 05:43 Anion Gap 10 (12-20) L 10/12/20 05:43 BUN 6 mg/dL (9-16) L 10/12/20 05:43 Creatinine 0.57 mg/dL (0.5-1 .4) 10/12/20 05:43 Estim Creat Clear Calc 123.8 10/12/20 05:43 Estimated GFR > 60 10/12/20 05:43 POC Glucose 73 mg/dL (60-115) 10/12/20 00:28 Random Glucose 95 mg/dL (60-115) 10/12/20 05:43 Lactic Acid 2.2 mmol/L (0.5-2 .0) H* 10/07/20 11:51 Lactic Acid Fup @ 2Hr 3.3 mmol/L (0.5-2 .0) H* 10/07/20 14:47 Lactic Acid Fup @ 4Hr 3.6 mmol/L (0.5-2 .0) H* 10/07/20 20:51 Calcium 7.7 mg/dL (8.4-10 .2) L 10/12/20 05:43 Phosphorus 3.0 mg/dL (2.7-4. 5) 10/12/20 05:43 Magnesium 1.9 mg/dL (1.6-2. 6) 10/12/20 05:43 Total Bilirubin 2.6 mg/dL (0.0-1. 0) H 10/09/20 05:17 AST 25 U/L (5-37) 10/09/20 05:17 ALT 15 U/L (0-40) 10/09/20 05:17 Alkaline Phosphata se 38 U/L (39-117) L D 10/09/20 05:17 Troponin I High Se ns 6.0 ng/L (<3.5-35 .0) 10/07/20 21:56 B-Natriuretic Pept thania 345 pg/mL (<100) H 10/07/20 21:56 Total Protein 5.0 g/dL (6.5-8.0 ) L 10/09/20 05:17 Albumin 2.6 g/dL (3.5-5.0 ) L 10/12/20 05:43 Hold Yellow Top See Note 10/07/20 12:07 Urine Color YELLOW 10/07/20 12:35 Urine Appearance TURBID 10/07/20 12:35 Urine pH 7.5 (5.0-8.0) 10/07/20 12:35 Ur Specific Gravit y 1.015 (1.005-1.0 25) 10/07/20 12:35 Urine Protein TRACE MG/DL (NEG- TRACE) 10/07/20 12:35 Urine Glucose (UA) 100 MG/DL (NEG) H 10/07/20 12:35 Urine Ketones NEG MG/DL (NEG) 10/07/20 12:35 Urine Blood 3+ (NEG) H 10/07/20 12:35 Urine Nitrite NEG (NEG) 10/07/20 12:35 Ur Leukocyte Ameena ase 3+ (NEG) H 10/07/20 12:35 Urine RBC 5-9 /HPF (0) H 10/07/20 12:35 Urine WBC 50-75 /HPF (0-4) H 10/07/20 12:35 Ur Squamous Epith Cells 3+ /LPF 10/07/20 12:35 Urine Bacteria 4+ /LPF 10/07/20 12:35 Stool Occult Blood POS (NEG) 10/08/20 02:21 C. difficile Toxin A&B Positive (Negati ve) A 10/07/20 16:00 C. difficile Antig en Positive (Negati ve) A 10/07/20 16:00 C. difficile Inter pret SEE NOTE 10/07/20 16:00 Coronavirus (PCR) NEGATIVE (Negati ve) 10/07/20 11:50 Influenza Type A ( PCR) NEGATIVE (Negati ve) 10/07/20 11:50 Influenza Type B ( PCR) NEGATIVE (Negati ve) 10/07/20 11:50 RSV RNA Qual (PCR) NEGATIVE (Negati ve) 10/07/20 11:50 Blood Type A Positive 10/11/20 14:29 Antibody Screen NEGATIVE 10/11/20 14:29 Crossmatch See Detail 10/07/20 21:55 Impressions Venous Duplex 10/07/20 11:42 IMPRESSION: Chronic DVT right profunda, superficial femoral and popliteal veins. There is moderate calf edema limiting evaluation of the calf veins. Benign-appearing lymph nodes in right groin. There is atherosclerotic minimal plaque seen throughout the arteries. Chest CTA 10/07/20 19:45 IMPRESSION: Moderately extensive bilateral acute pulmonary emboli. VTE: Positive. This critical result was discussed with Tracey Leigh NP at 10:05 PM on the evening of the exam and it was ascertained that the content and urgency of the report was understood at the time of direct communication. KUB X-Ray 10/07/20 23:22 IMPRESSION: Left femoral central line tip in the expected region of the left common iliac vessels. Abdomen/Pelvis CT 10/10/20 00:00 IMPRESSION: * No retroperitoneal hematoma or hemoperitoneum. * Worsening diffuse anasarca with evidence of anemia. * Increased small bilateral pleural effusions. * Diffuse hepatic steatosis. * Persistent though improved diffuse submucosal edema throughout the colon. * Stable submucosal edema within the rectum. * Decreased gas within the ischioanal fossa with small gas remaining adjacent to the right ischium. Chest X-Ray 10/11/20 00:00 IMPRESSION: 1. Endotracheal tube tip approximately 6.8 cm proximal to murali. 2. Bilateral patchy infiltrates with upper lobe predominance, right greater than left representing interval increase. Const: Other: Ventilated GI: Other: Soft, no guarding or rebound, not distended Back/Spine/Pelvis: Other: Right buttock deep decubitus ulcer clean, no cellulitis; on the anterior perianal area at the perineum is note of nonviable skin likely from the decubitus ulcer tracking through the his rectal at Progress Note: A&P Assessment and plan (1) Abnormal CT of the abdomen: Status: Acute Assessment and Plan: Has large and deep right buttock with ulcer On the anterior perianal area is note of nonviable skin likely an extension of this deep ulcer tracking into the ischio rectal fat Abdomen remains benign Patient remains critically ill Discussed with detail sergeant - has decided to do terminal extubation in view of poor long-term prognosis Fall Risk Details Current Medications: Current Medications Generic Name Dose Route Start Last Admin Trade Name Freq PRN Reason Stop Dose Admin Atorvastatin Calcium 40 mg 10/08/20 21:00 10/11/20 22:10 Atorvastatin Calcium 40 Mg Tablet PO 40 mg BEDTIME SAMAN Administration Chlorhexidine Gluconate 15 ml 10/11/20 15:00 10/12/20 08:58 Chlorhexidine Gluc Oral Rinse 15 Ml Mouthwash BUCCAL 15 ml TID SAMAN Administration Fentanyl 50 mcg 10/10/20 17:14 10/12/20 07:22 Fentanyl Citrate/Pf 100 Mcg/2 Ml Vial IVPUSH 50 mcg Q4H PRN Administration Pain, Moderate (Pain Scale 4-6 Folic Acid 1 mg 10/08/20 09:00 10/12/20 08:58 Folic Acid 1 Mg Tablet PO 1 mg DAILY SAMAN Administration Furosemide 20 mg 10/11/20 09:00 10/12/20 08:58 Furosemide 20 Mg/2 Ml Vial IVPUSH 20 mg BID SAMAN Administration Protocol Piperacillin Sod/Tazobactam 50 mls @ 100 mls/hr 10/07/20 19:00 10/12/20 08:59 Sod 3.375 gm/ Sodium Chloride IV Infused Q6H SAMAN Infusion Metronidazole 500 mg in 100 mls @ 100 mls/hr 10/07/20 19:00 10/12/20 10:36 Flagyl IV 100 mls/hr Q8H SAMAN Administration Dexmedetomidine HCl 400 mcg in 100 mls @ 0 mls/hr 10/11/20 14:30 10/12/20 01:54 Precedex IVCONT 0.4 mcg/kg/hr .Q0M SAMAN 6.2 mls/hr Administration Protocol Per Protocol Norepinephrine Bitartrate 8 mg in 250 mls @ 0 mls/hr 10/11/20 14:45 10/12/20 05:44 Levophed IVCONT 0.3 mcg/kg/min .Q0M SAMAN 34.88 mls/hr Administration Protocol Per Protocol Dextrose 1,000 mls @ 50 mls/hr 10/12/20 00:45 10/12/20 00:57 D5w IVCONT 50 mls/hr .Q20H SAMAN Administration Metoprolol Tartrate 2.5 mg 10/11/20 13:03 10/12/20 10:30 Metoprolol Tartrate 5 Mg/5 Ml Vial IVPUSH 2.5 mg Q6H PRN Administration HR>120 Pantoprazole Sodium 40 mg 10/12/20 16:30 Pantoprazole Sodium 40 Mg/10 Ml Vial IVPUSH BID@0630,1630 SAMAN Thiamine HCl 100 mg 10/08/20 09:00 10/12/20 08:58 Thiamine Hcl 100 Mg Tablet PO 100 mg DAILY SAMAN Administration Time Spent With Patient Time: Total time spent is greater than 50% in coordination of care (as documented) at patient's floor/unit and/or counseling patient: Time with patient: 25 - 35 minutes
[2020-10-12] MEDS: fentaNYL citrate/NS 1,000 MCG/100 ML PLAST..BAG 10 MCG IVCONT (14:21)
--- NOTE | 2020-10-12 14:39 | MHC.SLORD ---
Patient was intubated on 10/11/20. He is currently on ventilator. PO trials not appropriate this date. Dysphagia re-evaluation pending 24 hours post-extubation. Name: Thomas Oneal Date of : 1960 Age: 59 Date of Registration: 10/07/20 Speech Language Pathology Order Status:
--- NOTE | 2020-10-12 15:41 | PC.NURSE ---
Addendum entered by Moreno Gamble RN 10/12/20 15:44: The patient's heart monitor was in a sinus tachycardia, enterered what initially appeared to be atrial flutter, and then SVT today. Rates as high as 160 bpm. MD aware. Was administered 550 mcg fentanyl prn this morning to address analgesia with good effect. Also was administered 2.5 mg iv metoprolol today with good effect, HR lowered to 103 subsequently, but short-lived effect. BP was 90's/70's and tolerated both prns well. Wounds dressed this morning, MD examined perineal area at bedside for question of gangrene and consulted , who also came and examined the patient. Original Note: assumed care at 7 am. Patient was on vent, ac settings. Patient tolerating vent with sedation. On levophed 0.3, and precedex 0.4. Patient with reactive sluggish pupils, positive cough and gag. Patient with bloody oral secretions, MD aware. Patient with lung sounds with inspiratory rhonchi at bases. Patient with gastric residual >400 ccs, tube feed diet on hold. Patient family was updated as to his status, and discussed comfort care with MD. They decided to proceed with code status change. Family was allowed to come sit with patient at bedside following instititional protocol and with nursing sound technician supervisor's authorization. at 14:21, fenanyl gtt started, and report was given to following nurse, who is attending to subsequent transition to LIBRARY CIRCULATION ASSISTANT.
--- NOTE | 2020-10-12 16:22 | PC.NURSE ---
FENTANYL GTT STARTED AND LEVOPHED, PRECEDEX, AND D5 TURNED OFF 1435. EXTUBATED AT 1454. TOD 1612. [facility] DENIED ORGANS AND TISSUE DONATION BY BILL, CASE #[id number]. CALLED AND NOTIFIED OF PATIENTS PASSING, WILL CALL BACK WITH HOME. TO FILL OUT CERTIFICATE.
--- NOTE | 2020-10-12 20:22 | P.DN_ITS ---
Discharge Sum: Prov Provider Primary care physician: Nonstaff Physician Consults: 10/07/20 20:17 Consult to General Surgery Stat Consulting Provider: Taye Martinez Reason for consultation: ? Intraperitoneal/bladder perf 10/08/20 10:30 Consult to Wound Care Provider Routine Consulting Provider: Taylor Rodriguez Reason for consultation: ischial wound Has provider been notified: No Discharge Sum: Diag Contributing Factors (1) Abnormal CT of the abdomen: Discharge Sum: Summary Date and Time Date of admission: 10/07/20 18:15 Date of : 10/12/20 Time of : 16:12 Summary Details: NOTE DISCHARGE DIAGNOSES: 1. 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 2. Failure to thrive 3. Decubitus ulcer. 4. Gram-negative bacteremia 5. Septic shock. 6. Clostridium difficile colitis. 7. Klebsiella UTI. 8. Chronic right lower extremity DVT. 9. Chronic pulmonary emboli. 10 Thrombocytopenia. 11. Protein calorie malnutrition - moderate. Mr. Oneal was a 59-year-old gentleman with underlying history of CVA from 2018 with residual right-sided hemiplegia, chronic right femoral DVT, COPD, chronic diarrhea, and prior Gram-negative UTI. The patient had been living with his and over the last month [employer] had had progressive failure to thrive, inability to take care of his chronic wounds, and inadequate po intake. The patient was brought to the ED on 10/07/2020 with complaints of weakness and worsening diarrhea. On ER evaluation the patient noted to be in septic shock w ith multifactorial origin that proved to include Proteus bacteremia secondary to UTI, C diff colitis, and ischial decubitus ulcer. Abdominal CT showed pelvic soft tissue gas that was evaluated by General Surgery and deemed to be secondary to air tracking from his decubitus and not requiring surgical intervention. CT pulmon angiogram was remarkable for segmental pulmonary embolism that appeared t o be chronic. He was admitted to ICU and treated with broad-spectrum antibiotics and vasopressors. He was hypoxemic secondary to a combination of pulmonary edema from IV fluid resuscitation with low oncotic pressure and micro aspirations. He was gently diuresed and his resp status was managed with various levels of suppl oxygen support and pulmonary toilet. His oxygenation fluctuated bec of micro aspirations. On Oct 11, the patient had a major aspiration and required bronchoscopy to clear secretions, but ultimately had to be intubated for acute hypoxemic respiratory failure 2? recurrent aspiration. Following that, he required progressively increasing vasopressor support. The following day, we had a long discussion with the patient's about the arduous and very burdensome course that the patient was facing. She and he had previously discussed end of life situations, and it was clear to her that that was not what he would want. She visited and made the decision to establish comfort measures status. After the family said their goodbye, the patient was extubated and the vasopressors were discontinued. The patient became apneic and then asystolic at 1612 on Oct 12, 2020. Additional Data Attending physician: Ron Hsieh
== END 2020-10-12 16:12 | disposition expired | DRG 720 ==
LOC: HO.ED 16:32 → HO.ICU 20:04 → HO.IMC 10-12 10:35 → HO.ICU 10-12 10:54
PROVIDERS: Emergency Medicine; Registered Nurse Community Health; Admitting Provider Internal Medicine Pulmonary Disease; Emergency Provider Emergency Medicine; PCP Student in an Organized Health Care Education/Training Program; Visit Provider Anesthesiology
DX: A41.59 Other Gram-negative sepsis (principal); J96.01 Acute respiratory failure with hypoxia; I26.99 Other pulmonary embolism without acute cor pulmonale; R65.21 Severe sepsis with septic shock; L89.154 Pressure ulcer of sacral region, stage 4; E44.0 Moderate protein-calorie malnutrition; A04.72 Enterocolitis due to Clostridium difficile, not specified as recurrent; D69.6 Thrombocytopenia, unspecified; B96.1 Klebsiella pneumoniae [K. pneumoniae] as the cause of diseases classified elsewhere; Z20.822 Contact with and (suspected) exposure to COVID-19; I82.501 Chronic embolism and thrombosis of unspecified deep veins of right lower extremity; E88.09 Other disorders of plasma-protein metabolism, not elsewhere classified; D64.9 Anemia, unspecified; N39.0 Urinary tract infection, site not specified; I69.351 Hemiplegia and hemiparesis following cerebral infarction affecting right dominant side; Z68.1 Body mass index [BMI] 19.9 or less, adult; Z79.51 Long term (current) use of inhaled steroids; Z79.899 Other long term (current) drug therapy
CPT/HCPCS: 0241U; 36415; 71045; 71275; 74018; 74176; 74177; 80048; 80053; 81001; 81003; 82040; 82272; 82803; 82947; 83605; 83735; 83880; 84100; 84484; 85007; 85025; 85027; 85610; 86850; 86900; 86901; 86923; 87040; 87077; 87086; 87186; 87205; 87324; 87449; 92610; 93005; 93971; 94002; 94003; 94799; 96361; 96365; 96366; 96367; 96375; 99285; C1758; J0456; J0610; J0696; J1940; J2060; J2543; J3010; J3370; J3475; P9016; P9035; P9037; P9047; Q9967